=== PATIENT | male | born 1945 | race African-American/Black ===

== ENCOUNTER 2016-12-23 16:51 | Emergency (ER) | payer MEDICARE, MEDICAID ==
[2016-12-23 18:31] LABS: #Basophils 0.1 thou/uL (0.0-0.2); #Eosinphils 0.1 thou/uL (0.0-0.7); #Lymphocytes 1.1 thou/uL (1.20-3.40); #Monocytes 0.6 thou/uL (0.11-0.59); #Neutrophils 3.3 thou/uL (1.40-6.50); %Basophils 1.2 % (0.0-1.0); %Monocytes 11.2 % (0.0-10.0); Hematocrit 42.7 % (42.0-52.0); Mean Platelet Volume 7.3 fL (7.4-10.4); Red Blood Cell (RBC) Count 4.36 mill/uL (4.70-6.10); White Blood Cell (WBC) Count 5.1 thou/uL (4.8-10.8)
[2016-12-23 19:44] LABS: Chloride 108 mmol/L (98-107)
[2016-12-23 19:46] LABS: Globulin 2.9 g/dL (2.4-3.5); Protein, Total 6.4 g/dL (5.8-8.1)
[2016-12-23 19:47] LABS: Anion Gap 12 mmol/L (10-20); Carbon Dioxide 23 mmol/L (23-31)
[2016-12-23 19:48] LABS: Bilirubin, Total 0.6 mg/dL (0.2-1.2)
[2016-12-23 19:49] LABS: Alkaline Phosphatase 96 U/L (40-150); Calc. Creatinine Clearance 0 mL/min (70-130); Estimated GFR-MDRD Greater than 90
[2016-12-23 19:50] LABS: BUN (Urea Nitrogen) 18 mg/dL (8.4-25.7)
[2016-12-23 19:51] LABS: ALT (SGPT) 17 U/L (8-55); AST (SGOT) 17 U/L (5-34)
[2016-12-23 20:13] LABS: Bilirubin Negative (Negative); Blood, Urine Trace (Negative); Glucose, Urine (Dipstick) Negative (Negative); Ketone, Urine Negative (Negative); Nitrite Positive (Negative); Protein, Urine (Dipstick) Negative (Neg-Trace)
[2016-12-23 20:15] LABS: Bacteria/HPF 4+ HPF (None Seen); RBC/HPF 0-3 HPF (0-3); Squamous Epithelial 0-3 HPF (0-3)
[2016-12-23 20:26] LABS: Hyaline Casts/LPF 4-6 HYALINE CAST LPF (0-3 Hyaline)
[2016-12-23] MEDS ORDERED: Sodium Chloride 0.9% 100 ML ONE (20:58)
[2016-12-23] MEDS ORDERED: cefTRIAXone\\ROCEPHIN 2 GM VIAL ONE (20:58)
== END 2016-12-23 22:09 | disposition home or self-care (01) ==
LOC: ERS 16:51
DX: N39.0 Urinary tract infection, site not specified (principal); G20 Parkinson's disease; F02.80 Dementia in other diseases classified elsewhere, unspecified severity, without behavioral disturbance, psychotic disturbance, mood disturbance, and anxiety; F31.9 Bipolar disorder, unspecified; F25.9 Schizoaffective disorder, unspecified
CPT/HCPCS: 36415; 51701; 80053; 81003; 81015; 85025; 87077; 87086; 87186; 96361; 96365; J0696; J7050

== ENCOUNTER 2018-03-24 20:20 | Emergency (ER) | payer MEDICARE, MEDICAID ==
--- NOTE | 2018-03-24 21:20 | RAD ---
PORTABLE CHEST: 03/24/18 PROVIDED CLINICAL HISTORY: Hypoxia. FINDINGS: Comparison 10/30/16. The cardiac and mediastinal silhouette is within normal limits. No definite focal consolidation, pleu ral fluid, or pneumothorax apparent. IMPRESSION: No evidence for an acute cardiopulmonary process. POS: [facility]
[2018-03-24 21:31] LABS: ALT (SGPT) 22 U/L (8-55); AST (SGOT) 17 U/L (5-34); Albumin 3.8 g/dL (3.4-4.8); Alkaline Phosphatase 100 U/L (40-150); Anion Gap 16 mmol/L (10-20); BUN (Urea Nitrogen) 23 mg/dL (8.4-25.7); Bilirubin, Total 0.5 mg/dL (0.2-1.2); Calc. Creatinine Clearance 0 mL/min (70-130); Calcium 9.5 mg/dL (7.8-10.44); Carbon Dioxide 22 mmol/L (23-31); Chloride 106 mmol/L (98-107); Estimated GFR-MDRD 55; Globulin 3.7 g/dL (2.4-3.5); Glucose 172 mg/dL (83-110); Potassium 4.2 mmol/L (3.5-5.1); Protein, Total 7.5 g/dL (5.8-8.1); Sodium 140 mmol/L (136-145)
[2018-03-24 21:34] LABS: Band 8 % (5-11); Hemoglobin 12.8 g/dL (14.0-18.0); Lymphocytes 1 % (21-51); MDiff Complete? YES; Mean Corpuscular HGB CONC 31.9 g/dL (32.0-36.0); Mean Corpuscular Hemoglobin 30.7 pg (27.0-31.0); Mean Corpuscular Volume 96.2 fL (78.0-98.0); Monocytes 2 % (0-10); Neutrophil 89 % (42-75); PLT Morphology Comment Appears Adequate; Platelet Count 270 thou/uL (130-400); RBC Distribution Width 11.6 % (11.5-14.5); Red Blood Cell (RBC) Count 4.18 mill/uL (4.70-6.10); White Blood Cell (WBC) Count 15.3 thou/uL (4.8-10.8)
[2018-03-24 22:56] LABS: Bilirubin Negative (Negative); Blood, Urine Large (Negative); Clarity TURBID (Clear); Glucose, Urine (Dipstick) Negative (Negative); Leukocyte Large (Negative); Nitrite Positive (Negative); Protein, Urine (Dipstick) 30 mg/dL (Neg-Trace); Specific Gravity, Urine 1.022 (1.002-1.036)
[2018-03-24 22:58] LABS: Bacteria/HPF 3+ HPF (None Seen); Yeast-AUWi Flag 89.8 (0-25.0)
[2018-03-24 23:08] LABS: Hyaline Casts/LPF 7-10 HYALINE CAST LPF (0-3 Hyaline)
[2018-03-24 23:10] LABS: Renal Epithelial 0-3 HPF (0-3)
[2018-03-24] MEDS ORDERED: cefTRIAXone\\ROCEPHIN 1 GM VIAL ONE (23:27)
== END 2018-03-25 00:49 | disposition home or self-care (01) ==
LOC: ERS 20:20
DX: N18.9 Chronic kidney disease, unspecified (principal); D63.1 Anemia in chronic kidney disease; N39.0 Urinary tract infection, site not specified; E86.0 Dehydration; F20.9 Schizophrenia, unspecified; F31.9 Bipolar disorder, unspecified; F03.90 Unspecified dementia, unspecified severity, without behavioral disturbance, psychotic disturbance, mood disturbance, and anxiety; G20 Parkinson's disease; Z79.899 Other long term (current) drug therapy
CPT/HCPCS: 36415; 51701; 71045; 80053; 81003; 81015; 85025; 87077; 87086; 87186; 87804; 93005; 96361; 96365; J0696

== ENCOUNTER 2018-07-03 14:01 | Emergency (ER) | payer MEDICARE, MEDICAID ==
[2018-07-03 15:19] LABS: Bilirubin Negative (Negative); Glucose, Urine (Dipstick) Negative (Negative); Nitrite Negative (Negative); Protein, Urine (Dipstick) 300 mg/dL (Neg-Trace); Specific Gravity, Urine 1.023 (1.002-1.036); pH, Urine 7.5 (5.0-9.0)
[2018-07-03 15:21] LABS: Clarity Opaque (Clear)
[2018-07-03 15:22] LABS: Blood, Urine Large (Negative); Leukocyte Moderate (Negative)
[2018-07-03 15:23] LABS: RBC/HPF GREATER THAN 50-TNTC HPF (0-3)
[2018-07-03 15:24] LABS: Bacteria/HPF None Seen HPF (None Seen); Hyaline Casts/LPF NONE SEEN LPF (0-3 Hyaline); Squamous Epithelial None Seen HPF (0-3)
--- NOTE | 2018-07-03 16:15 | CT ---
NONCONTRAST ENHANCED CT IMAGES ABDOMEN AND PELVIS: 07/03/18 HISTORY: Hematuria. Rectal bleeding. Noncontrast enhanced CT images of the abdomen and pelvis demonstrates areas of consolidation seen in the left lower lobe of the lungs. The liver and spleen are unremarkable. No evidence of free intraperitoneal air seen. The gallbladder is unremarkable. No evidence of obvious renal calculi seen. The colon contains a lar ge amount of stool. Large amount of fecal debris seen in the rectum concerning fecal impaction. IMPRESSION: 1. No evidence of renal calculi. 2. Large amount of stool in the colon. POS: [facility]
[2018-07-03 16:17] LABS: #Eosinphils 0.1 thou/uL (0.0-0.7); #Lymphocytes 1.2 thou/uL (1.20-3.40); #Monocytes 0.8 thou/uL (0.11-0.59); #Neutrophils 7.8 thou/uL (1.40-6.50); %Basophils 0.4 % (0.0-1.0); %Eosinophils 0.9 % (0.0-10.0); %Neutrophils 78.8 % (42.0-75.0); Hemoglobin 11.4 g/dL (14.0-18.0); Mean Corpuscular HGB CONC 31.5 g/dL (32.0-36.0); Mean Corpuscular Hemoglobin 29.5 pg (27.0-31.0); Mean Corpuscular Volume 93.7 fL (78.0-98.0); Mean Platelet Volume 6.6 fL (7.4-10.4); Platelet Count 388 thou/uL (130-400); RBC Distribution Width 12.1 % (11.5-14.5); Red Blood Cell (RBC) Count 3.86 mill/uL (4.70-6.10); White Blood Cell (WBC) Count 9.9 thou/uL (4.8-10.8)
[2018-07-03 16:41] LABS: ALT (SGPT) 62 U/L (8-55); AST (SGOT) 38 U/L (5-34); Albumin 3.6 g/dL (3.4-4.8); Alkaline Phosphatase 108 U/L (40-150); Anion Gap 13 mmol/L (10-20); BUN (Urea Nitrogen) 27 mg/dL (8.4-25.7); Bilirubin, Total 0.5 mg/dL (0.2-1.2); Calc. Creatinine Clearance 0 mL/min (70-130); Calcium 9.5 mg/dL (7.8-10.44); Carbon Dioxide 27 mmol/L (23-31); Chloride 110 mmol/L (98-107); Estimated GFR-MDRD 74; Globulin 3.9 g/dL (2.4-3.5); Glucose 109 mg/dL (83-110); Potassium 4.3 mmol/L (3.5-5.1); Protein, Total 7.5 g/dL (5.8-8.1); Sodium 146 mmol/L (136-145)
== END 2018-07-03 18:04 ==
LOC: ERS 14:01
DX: N39.0 Urinary tract infection, site not specified (principal); G20 Parkinson's disease; D64.9 Anemia, unspecified; D50.9 Iron deficiency anemia, unspecified; F02.80 Dementia in other diseases classified elsewhere, unspecified severity, without behavioral disturbance, psychotic disturbance, mood disturbance, and anxiety; F20.9 Schizophrenia, unspecified; F31.9 Bipolar disorder, unspecified; F25.9 Schizoaffective disorder, unspecified; Z79.899 Other long term (current) drug therapy
CPT/HCPCS: 36415; 74176; 80053; 81003; 81015; 85025

== ENCOUNTER 2018-07-04 18:59 | Inpatient (IN) | payer MEDICARE, MEDICAID ==
[~2018-07-04 18:59] MED LIST: ISOVUE-370 76%-LOCM 1 ML ONE
[2018-07-04 19:57] LABS: Blood, Urine Large (Negative); Clarity Opaque (Clear); Leukocyte Unable to Interpret (Negative)
[2018-07-04 19:58] LABS: #Lymphocytes 0.6 thou/uL (1.20-3.40); #Monocytes 0.5 thou/uL (0.11-0.59); #Neutrophils 4.6 thou/uL (1.40-6.50); %Basophils 0.3 % (0.0-1.0); %Eosinophils 0.8 % (0.0-10.0); %Lymphocytes 9.6 % (21.0-51.0); %Monocytes 8.1 % (0.0-10.0); %Neutrophils 81.3 % (42.0-75.0); Hemoglobin 5.5 g/dL (14.0-18.0); Mean Corpuscular HGB CONC 31.6 g/dL (32.0-36.0); Mean Corpuscular Hemoglobin 30.8 pg (27.0-31.0); Mean Corpuscular Volume 97.4 fL (78.0-98.0); Mean Platelet Volume 6.5 fL (7.4-10.4); Platelet Count 179 thou/uL (130-400); Red Blood Cell (RBC) Count 1.77 mill/uL (4.70-6.10); White Blood Cell (WBC) Count 5.7 thou/uL (4.8-10.8)
[2018-07-04 19:59] LABS: Platelet Count 179 thou/uL (130-400)
[2018-07-04 20:05] LABS: Glucose, Urine (Dipstick) Unable to Interpret mg/dL (Negative); Nitrite Unable to Interpret (Negative); Protein, Urine (Dipstick) > or equal to 300 mg/dL (Neg-Trace); Specific Gravity, Urine 1.035 (1.002-1.036)
[2018-07-04 20:06] LABS: Bilirubin Unable to Interpret (Negative); Urobilinogen UNABLE TO INTERPRET mg/dL (0.2-1.0)
[2018-07-04 20:06] LABS: Fibrinogen 234 mg/dL (253-463)
[2018-07-04 20:07] LABS: RBC/HPF GREATER THAN 50-TNTC HPF (0-3)
[2018-07-04 20:07] LABS: INR-International Normal Ratio 2.1; Prothrombin Time 23.6 SEC (12.0-14.7)
[2018-07-04 20:08] LABS: D-Dimer Test 2.03 *mcg/mL (0.27-0.43)
[2018-07-04 20:08] LABS: Bacteria/HPF None Seen HPF (None Seen); Hyaline Casts/LPF NONE SEEN LPF (0-3 Hyaline)
[2018-07-04 20:10] LABS: PTT 137.2 SEC (22.9-36.1)
[2018-07-04 20:18] LABS: FSP-Qualitative Normal (Normal)
[2018-07-04 20:27] LABS: ALT (SGPT) 22 U/L (8-55); AST (SGOT) 12 U/L (5-34); Albumin 1.6 g/dL (3.4-4.8); Alkaline Phosphatase 47 U/L (40-150); Anion Gap 6 mmol/L (10-20); BUN (Urea Nitrogen) 17 mg/dL (8.4-25.7); Bilirubin, Total 0.2 mg/dL (0.2-1.2); Calc. Creatinine Clearance 0 mL/min (70-130); Calcium 4.3 mg/dL (7.8-10.44); Carbon Dioxide 13 mmol/L (23-31); Chloride 131 mmol/L (98-107); Estimated GFR-MDRD Greater than 90; Globulin 1.7 g/dL (2.4-3.5); Glucose 66 mg/dL (83-110); Potassium 1.7 mmol/L (3.5-5.1); Protein, Total 3.3 g/dL (5.8-8.1); Sodium 148 mmol/L (136-145)
--- NOTE | 2018-07-04 20:49 | CT ---
CT of abdomen and pelvis: 07/04/2018 COMPARISON: 07/03/2018 HISTORY: Hematuria TECHNIQUE: Axial CT imaging obtained at 5 mm intervals from lung bases through pubic symphysis with I V contrast. Coronal reformatted imaging obtained. FINDINGS: There is a focal area of pulmonary parenchymal opacity within the inferior posterior left l ower lobe suggesting infectious pneumonitis or aspiration. There is no free intraperitoneal air. A Castillo catheter is present. The balloon is inflated within the region of the bulbous urethra. The liver, gallbladder, and spleen are grossly unremarkable. The pancreas and bilateral adrenal gland s appear grossly unremarkable. There is a low-density lesion within the mid pole of the left kidney medially measuring 1.4 cm, with Hounsfield units of approximately 1, evidence of a simple cyst. Additional simple cyst noted within mid pole of right kidney anteriorly. There is mild dilation of the right renal pelvis and right renal collecting system. Material within t he dilated renal pelvis and right renal collecting system is slightly hyperdense, which may signify hemorrhage. The rectum is markedly expanded and filled with stool suggesting fecal impaction. Limited assessment of the bowel without oral contrast media demonstrates no evidence for obstruction. There is multifocal atherosclerotic calcification of the abdominal aorta and its branches distally. 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 Right common iliac artery measures up to 1.8 cm in transverse dimension. No evidence for abdominal or pelvic lymphadenopathy. Review of the osseous structures demonstrates diffuse osteopenia with no focal lytic or blastic bone lesion. No acute osseous abnormality is noted. IMPRESSION: Castillo catheter with balloon inflated within the bulbous urethra. Hyperdense material with in a prominent right renal collecting system, suspicious for hemorrhage. A degree of obstructive uropathy is a possibility. Urology consultation and consideration for follow-up CT urogram suggested. Findings suspicious for fecal impaction Focal opacity in the left lung base suggesting infectious pneumonitis or aspiration. Atherosclerotic disease. 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 Acute findings relayed to Dr. Damico at 8:45 PM 07/04/2018.
[2018-07-04] MEDS ORDERED: Magnesium 2 GM/50 ML BAG (IN WATER) ONE (20:58)
[2018-07-04] MEDS ORDERED: Piperacillin/Tazobactam 4.5 GM VIAL ONE (20:58)
[2018-07-04] MEDS ORDERED: Sodium Chloride 0.9% 100 ML ONE (20:59)
[2018-07-04 21:15] LABS: INR-International Normal Ratio 1.3; Prothrombin Time 16.3 SEC (12.0-14.7)
[2018-07-04] MEDS ORDERED: Vancomycin HCl 1.25 GM in Sodium Chloride 0.9% 250 ML 250 ML IVPB SCH (21:15)
[2018-07-04] MEDS ORDERED: Calcium Gluc 4.6 MEQ/10 ML (100 MG/ML) SLOW IVP SCH (21:15)
--- NOTE | 2018-07-04 21:50 | RAD ---
Frontal radiograph chest: 07/04/2018 COMPARISON: 03/24/2018 HISTORY: Sepsis alert, hematuria FINDINGS: Mild hazy density in the medial left lung base suggests possible aspiration or infectious p neumonitis. Right lung appears clear. No pneumothorax is seen. IMPRESSION: Mild increased density in the medial left lung base as above.
[2018-07-04] MEDS ORDERED: Lidocaine 4% Topical Sol 50 ML BOT ONE (22:23)
[2018-07-04] MEDS ORDERED: Loperamide HCl 2 MG CAP ONE (22:23)
[2018-07-04] MEDS ORDERED: Lidocaine 2% 11 ML SYR TOP SCH ×2 (22:45→23:45)
[2018-07-04 23:51] LABS: #Eosinphils 0.1 thou/uL (0.0-0.7); #Neutrophils 8.8 thou/uL (1.40-6.50); %Basophils 0.4 % (0.0-1.0); %Eosinophils 0.8 % (0.0-10.0); %Lymphocytes 9.5 % (21.0-51.0); %Monocytes 9.2 % (0.0-10.0); %Neutrophils 80.1 % (42.0-75.0); Hemoglobin 10.1 g/dL (14.0-18.0); Mean Corpuscular HGB CONC 30.2 g/dL (32.0-36.0); Mean Corpuscular Hemoglobin 29.6 pg (27.0-31.0); Mean Corpuscular Volume 97.9 fL (78.0-98.0); Platelet Count 300 thou/uL (130-400); RBC Distribution Width 12.2 % (11.5-14.5); Red Blood Cell (RBC) Count 3.42 mill/uL (4.70-6.10); White Blood Cell (WBC) Count 10.9 thou/uL (4.8-10.8)
[2018-07-05 00:03] LABS: ALT (SGPT) 42 U/L (8-55); AST (SGOT) 24 U/L (5-34); Alkaline Phosphatase 89 U/L (40-150); Anion Gap 14 mmol/L (10-20); BUN (Urea Nitrogen) 30 mg/dL (8.4-25.7); Bilirubin, Total 0.7 mg/dL (0.2-1.2); Calc. Creatinine Clearance 0 mL/min (70-130); Calcium 9.2 mg/dL (7.8-10.44); Carbon Dioxide 21 mmol/L (23-31); Chloride 112 mmol/L (98-107); Estimated GFR-MDRD 63; Globulin 3.4 g/dL (2.4-3.5); Glucose 103 mg/dL (83-110); Potassium 4.2 mmol/L (3.5-5.1); Protein, Total 6.4 g/dL (5.8-8.1); Sodium 143 mmol/L (136-145)
[2018-07-05 02:23] VITALS: BMI 19.1
[2018-07-05] MEDS ORDERED: Prevnar 13-Val Conj/PF 0.5 ML SYRINGE IM ONE (02:45)
--- NOTE | 2018-07-05 05:11 | CON ---
DATE OF CONSULTATION: 07/05/2018 REASON FOR CONSULTATION: Consultation was requested for both hematuria, urinary tract infection, and unable to get a catheter in. 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 He returns with now an indwelling catheter that just shows daina blood and as best I can tell, the indwelling was placed at the skilled nursing or his facility and clearly was placed improperly as demonstrated by the CT scan. I asked the ER to remove the misplaced catheter and attempt a coude and they were unable to do this. So, I was called back. He had been voiding spontaneously on his own periodically since those attempts. So, I have no idea why the catheter was placed or attempted to be placed in the first place. It does not appear that he has had prior urologic intervention nor urologist. PAST MEDICAL HISTORY: Significant for Parkinson dementia, anemia, hemorrhoids, blindness, and schizoaffective disorder. PAST SURGICAL HISTORY: Unknown. MEDICATIONS: Include, 1. Vitamin B and C. 2. Colace. 3. Tylenol. 4. Milk of magnesia. ALLERGIES: NONE. SOCIAL HISTORY: I am not aware of any smoking, alcohol, or drug use. REVIEW OF SYSTEMS: Previously, he has been admitted for aspiration issues and pneumonia in 2016 with dysphagia being diagnosed. Other than that, I have no known review of systems, but clearly he has not been having normal bowels as he has a significant amount of stool in his rectum. FAMILY HISTORY: Unknown. PHYSICAL EXAMINATION: GENERAL: He is lying comfortably in the bed. HEENT: He does not open his eyes to voice or stimulation; however, with the more examination that was performed, he did ultimately open at least his right eye, but he was nonverbal and did not appear to necessarily understand or at least be able to communicate that he was understanding me. He was very thin and cachectic with contractions. He had no obvious JVD or scleral icterus. HEART: Regular rate and rhythm. No murmurs, gallops, or rubs. LUNGS: Clear to auscultation bilaterally. ABDOMEN: Softly distended and after Castillo placement, there is softness on the left, but still some fullness on the right. : His testes were atrophic and descended bilaterally after being pulled down. His phallus was appeared to be circumcised, but the excess did go over the casanova, but not covering the entire glans. EXTREMITIES: He had no lower extremity edema. RECTAL: SAMMY was deferred. LABORATORY DATA: All of his laboratory values were abnormal originally and then redrawn showing a white count of 10.9, hemoglobin of 10.1, hematocrit of 33.5, and platelets of 300. His BUN and creatinine are 30 and 1.36, which is up from the 1.18 previously and has been as high as 1.52 in March of this year. Urine from the showed 11 to 20 wbc's, too numerous to count rbc's, no bacteria, no squamous cells. The original urinalysis from the was just frankly blood and not urine. I did send the urine from after my procedure that will be dated the that is more artist representative. There was a urine culture that was positive from March of this year for E coli, Proteus in 2016, and presumably an infection in 2015, but no culture. CT scan from 07/04/2018 with contrast reveals mild right hydro with question of concerns for calyx in the ureters, but probably more likely just in adjacent vessels and the distention is possibly related to the full bladder. There was no left hydro. He had bilateral simple cysts, and the bladder was full with the Castillo in the urethra or anywhere near the bladder itself, and the rectum was full of stool with significant dilation of air in the rest of the bowel. DESCRIPTION OF PROCEDURE: The patient was prepped in sterile fashion and then, an 18-Lithuanian flexible cystoscope was used to traverse the urethra. Significant hematuria and inflammation were noted. At first, there appeared to be a possible stricture; however, after further manipulation, I was able to aim the scope more anteriorly and easily passed into the bladder itself, where there was not a significant amount of hematuria noted in the bladder and I left a stiff wire in place after removing the scope itself. Then, an 18-L[place]uanian [place] was used to go over the wire without difficulty. Hematuric urine was returned and sent for specimen. There was not a significant amount, so then I irrigated for a small amount of clot and the patient just had significant spasm, so you could not fill him up significantly, but the catheter did appear to be in proper position and so it was then secured and left to gravity. ASSESSMENT: We have a 73-year-old male with concern for urinary tract infection , but this has not been documented as such but he has had hematuria. Whether it is related to intermittent catheterization versus traumatic Castillo in the urethra, I am not sure. I did not see any obvious source in the bladder itself, but of course , this was a preliminary examination given the circumstances. So at this point, I would leave the catheter in at least 5 to 7 days and allow the urethral trauma to heal. I would presumably treat him for infection. However, I am not sure that we will ultimately have a positive culture, so I would keep him on Rocephin until we know better. While he is in-house, I would work towards ensuring his bowels are moving regularly without any concern for fecal impaction. I will go ahead and start tamsulosin at this time for presumed BPH as a reason for his urinary tract infection and finasteride could be helpful with respect to hematuria as well. I'll order a KUB to assess for clearance of the IV contrast to f/u on right hydronephrosis. Job ID: [id number] [facility]
[2018-07-05] MEDS ORDERED: Bacitracin Zinc Ointment 30 gm TUBE ONE (06:46)
[2018-07-05] MEDS ORDERED: Dextrose 5 %-0.45 % NaCl 1,000 ML IV SCH (07:00)
[2018-07-05] MEDS: Tamsulosin HCl 0.4 MG CAP PO SCH ×2 (07:30→11:01)
[2018-07-05] MEDS: Finasteride 5 MG TAB PO SCH ×2 (07:30→11:00)
[2018-07-05] MEDS ORDERED: Ondansetron ODT 8 MG TAB PO PRN (10:32)
[2018-07-05] MEDS ORDERED: Acetaminophen 325 MG TAB PO PRN (10:33)
[2018-07-05] MEDS: Dextrose 5 %-0.45 % NaCl 1,000 ML IV SCH ×2 (10:42→22:56)
[2018-07-05] MEDS ORDERED: cefTRIAXone\\ROCEPHIN 2 GM in Sodium Chloride 0.9% 100 ML IVPB SCH (11:00)
--- NOTE | 2018-07-05 12:21 | RAD ---
SUPINE ABDOMEN: Date: 07/05/18 INDICATION: Evaluate for clearance of contrast. FINDINGS/IMPRESSION: Patient had contrasted CT exam on 07/04/18. There continues to be contrast opacification in the upper collecting structures. There is gaseous distention of small and large bowel with scattered stool thr oughout the colon/ A rounded opacity overlying the left iliac wing is of uncertain etiology and signi ficance. This was not identified on recent CT scan. POS: [facility]
[2018-07-05] MEDS ORDERED: Fleet Enema 133 ML BOT FS SCH (14:15)
[2018-07-05] MEDS ORDERED: Magnesium Citrate 300 ML BOT PO SCH (14:15)
[2018-07-05] MEDS: Piperacillin/Tazobactam 3.375 GM in Sodium Chloride 0.9% 100 ML IVPB SCH ×2 (15:22→20:06)
--- NOTE | 2018-07-05 18:20 | PRG ---
DATE OF SERVICE: 07/05/2018 SUBJECTIVE: The patient cannot communicate, but is sitting up and being fed without difficulty and seemingly done okay through the day. PHYSICAL EXAMINATION: GENERAL: He is alert and eating, but not communicative. VITAL SIGNS: His vitals have been stable with T-max 99.0, previously now 98.7, heart rate 82, blood pressure 149/74, and saturating 90% on room air. A Castillo catheter is in place and is draining 225 of urine. LABORATORY DATA: No new labs were obtained and unfortunately despite collecting myself in the specimen cup and asking for microscopic analysis and culture, I do not see that there was one sent from the urine that I obtained once I placed the Castillo last evening. It would be unlikely to grow anything. He has been on antibiotics, but it would have been helpful to know whether there was bacteria in the urine, remaining to help guide on antibiotic coverage. A PSA was obtained and 1.94 from 07/05/2018. A KUB was also obtained around noon today and showed a persistent right nephrogram, but did not show any columning in the ureter. The Castillo appeared to be in good position via the KUB and there was no remaining contrast on the left. I reviewed with the patient's power of police clerk, which is the medicare interviewer, Anna and her field service supervisor on my concern is that the kidney may not be draining and ultimately I would take him for cystoscopy, retrograde pyelogram and possible stent. We reviewed the risks and benefits to this and how it is relatively minor overall, however, still a procedure. I consented him including not rescinding his DNR order during the procedure itself and all questions were answered. If for some reason , his labs are all improved, I would repeat the KUB to evaluate for drainage on this side before again taking him to the OR. Otherwise I'll, plan on taking him for the procedure and keep him n.p.o. after midnight tonight. I will also send cytology. Job ID: [id number] [facility]
[2018-07-05] MEDS ORDERED: Polyethylene Glycol 3350 17 GM Packet PO SCH (19:15)
[2018-07-05] MEDS: Docusate 100 MG CAP PO SCH (20:06)
[2018-07-05] MEDS: Milk Of Magnesia 30 ML UDCUP PO SCH (20:06)
[2018-07-06] MEDS: Piperacillin/Tazobactam 3.375 GM in Sodium Chloride 0.9% 100 ML IVPB SCH ×4 (03:33→20:46)
[2018-07-06] MEDS: Dextrose 5 %-0.45 % NaCl 1,000 ML IV SCH ×2 (03:33→20:50)
[2018-07-06 06:19] LABS: #Eosinphils 0.1 thou/uL (0.0-0.7); #Lymphocytes 0.7 thou/uL (1.20-3.40); #Monocytes 0.9 thou/uL (0.11-0.59); #Neutrophils 7.4 thou/uL (1.40-6.50); %Basophils 0.3 % (0.0-1.0); %Eosinophils 1.4 % (0.0-10.0); %Lymphocytes 7.2 % (21.0-51.0); %Monocytes 9.5 % (0.0-10.0); %Neutrophils 81.6 % (42.0-75.0); Hemoglobin 8.5 g/dL (14.0-18.0); Mean Corpuscular HGB CONC 31.3 g/dL (32.0-36.0); Mean Corpuscular Hemoglobin 29.7 pg (27.0-31.0); Mean Platelet Volume 7.2 fL (7.4-10.4); Platelet Count 284 thou/uL (130-400); Red Blood Cell (RBC) Count 2.86 mill/uL (4.70-6.10); White Blood Cell (WBC) Count 9.1 thou/uL (4.8-10.8)
[2018-07-06 06:47] LABS: Anion Gap 10 mmol/L (10-20); BUN (Urea Nitrogen) 26 mg/dL (8.4-25.7); Calc. Creatinine Clearance 34 mL/min (70-130); Calcium 8.7 mg/dL (7.8-10.44); Carbon Dioxide 28 mmol/L (23-31); Chloride 109 mmol/L (98-107); Estimated GFR-MDRD 50; Glucose 127 mg/dL (83-110); Potassium 3.7 mmol/L (3.5-5.1); Sodium 143 mmol/L (136-145)
[2018-07-06] MEDS: Ascorbic Acid 500 mg Chewable Tablet PO SCH (08:28)
[2018-07-06] MEDS: Polyethylene Glycol 3350 17 GM Packet PO SCH (08:28)
[2018-07-06] MEDS: Finasteride 5 MG TAB PO SCH (08:28)
[2018-07-06] MEDS: Docusate 100 MG CAP PO SCH ×2 (08:28→20:43)
[2018-07-06] MEDS: Milk Of Magnesia 30 ML UDCUP PO SCH ×2 (08:28→20:43)
[2018-07-06] MEDS: Tamsulosin HCl 0.4 MG CAP PO SCH (08:29)
[2018-07-06] MEDS: Thiamine 100 MG TAB PO SCH (08:29)
--- NOTE | 2018-07-06 09:00 | HP ---
CHIEF COMPLAINT: Hematuria. HISTORY OF PRESENT ILLNESS: Mr. Locke is a 73-year-old male with past medical history of Parkinson disease, protein-calorie malnutrition, dysphagia, was noted to have hematuria for the last 2 to 3 days. The patient was evaluated in the ER for hematuria, thought he has UTI and was released, but the patient continued to have hematuria at the alf and blood clots and hematuria was getting worse. They tried to put a Castillo catheter, nothing was draining, basically they were unsuccessful. The patient was sent to the emergency room for further evaluation. In the ER, the patient was evaluated, catheter was removed and ER physician could not reinsert catheter. So he consulted Urologist, Dr. Wren, who came and inserted Castillo. After insertion of Castillo, his hematuria is much less now. He did have abdominal CTs done in the ER, which was reported as possible pneumonitis as well as suspicious for hemorrhage and renal collecting system on the right, also suspicious for fecal impaction. The patient was given Rocephin in the ER, started on IV fluids, the patient being admitted for further management and monitoring. PAST MEDICAL HISTORY: 1. Parkinson's disease with dementia, the patient is nonambulatory and nonverbal. 2. Chronic anemia. 3. Blindness, legally blind. 4. History of schizoaffective disorder. 5. Dysphagia, severe. 6. History of aspiration pneumonia. 7. History of transaminitis. PAST SURGICAL HISTORY: Nothing significant. CURRENT MEDICATIONS: The patient is on: 1. Vitamin C daily. 2. Colace 100 mg b.i.d. 3. Milk of magnesia 30 mL b.i.d. ALLERGIES: NO KNOWN DRUG ALLERGIES. FAMILY HISTORY: Nothing contributory. SOCIAL HISTORY: The patient is awake, but not verbal. Unable to obtain any history. REVIEW OF SYSTEMS: Unable to obtain. PHYSICAL EXAMINATION: GENERAL: The patient is a resident of [facility], nonambulatory. VITAL SIGNS: Temperature 98, pulse 80, resp 20, BP 130/80 HEENT: Head is normocephalic and atraumatic. Pupils are equal and reactive. Nasopharynx is pale and dry. Hard and soft palate, no lesions. LUNGS: Breath sounds diminished bilaterally. Percussion dull bilaterally. No rales. HEART: S1 and S2 regular. ABDOMEN: Soft. No distention. No tenderness. Normal bowel sounds present. RECTAL: Deferred. CENTRAL NERVOUS SYSTEM: No focal deficit. LABORATORY DATA: CBC shows WBC 10.9, hemoglobin 10, hematocrit 33, platelets 300, prothrombin time 16, INR 1.3. Metabolic panel: sodium 143, potassium 4.2, chloride 112, carbon dioxide 21. Chest x-ray, there is increased density in the left base. CT scan of the abdomen revealed possible aspiration pneumonitis, left base and abnormality in renal collecting system on the right, also fecal impaction. ASSESSMENT: 1. Hematuria, etiology not clear. 2. Aspiration pneumonia, left base. 3. Constipation. 4. Severe dementia. 5. Parkinson disease. 6. The patient is bedridden, nonambulatory. 7. The patient is nonverbal. 8. Rule out renal parenchymal hemorrhage. 9. Anemia, chronic. PLAN: 1. The patient will be on antibiotic Zosyn 3.375 g q.6 hours, IVP D5-1/. 2. Urology consult. 3. Continue alf medications. 4. Vital signs q.4 hours. 5. Activity as tolerated. 6. The patient is DNR. Job ID: [id number] [facility]
[2018-07-06] MEDS ORDERED: PROPOFOL 200 MG/20 ML VIAL ONE (15:54)
[2018-07-06] MEDS ORDERED: Lidocaine 1% PF 5 ML VIAL ONE (15:54)
[2018-07-06] MEDS ORDERED: Ondansetron PF 4 MG/2 ML Vial ONE (15:54)
[2018-07-06] MEDS ORDERED: ePHEDrine 50 MG/ML VIAL ONE (15:54)
[2018-07-06] MEDS ORDERED: PHENYLEPHRINE-NS 100 MCG/ML 10 ML SYRINGE ONE (15:54)
[2018-07-06] MEDS ORDERED: Fentanyl 100 MCG/2 ML VIAL ONE (17:06)
[2018-07-06] MEDS ORDERED: Iothalamate Meglumine 60% 50 ML VIAL FS ONE (17:06)
[2018-07-06] MEDS ORDERED: Phenylephrine HCL 10 MG/ML VIAL ONE (18:01)
--- NOTE | 2018-07-06 18:39 | RAD ---
Retrograde pyelogram: 07/06/2018 HISTORY: Cystoscopy FINDINGS: 4 images from a right-sided retrograde pyelogram provided. There is a conspicuous multifoca l filling defect within the renal pelvis and upper pole calyces on the right, which may signify blood clot and/or tumor within the right renal collecting system. IMPRESSION: Multiple filling defects within the right renal collecting system as detailed above.
[2018-07-06] MEDS ORDERED: Promethazine HCl 25 MG/ML VIAL IM PRN ×2 (18:47→18:48)
[2018-07-06] MEDS ORDERED: Promethazine HCl 25 MG/ML VIAL SLOW IVP PRN ×2 (18:47→18:48)
[2018-07-06 19:53] LABS: Clarity Turbid (Clear)
[2018-07-06 19:54] LABS: Bilirubin Unable to Interpret (Negative); Blood, Urine Large (Negative); Glucose, Urine (Dipstick) Unable to Interpret mg/dL (Negative); Leukocyte Unable to Interpret (Negative); Nitrite Unable to Interpret (Negative); Protein, Urine (Dipstick) > or equal to 300 mg/dL (Neg-Trace); Specific Gravity, Urine 1.014 (1.002-1.036); Urobilinogen UNABLE TO INTERPRET mg/dL (0.2-1.0); pH, Urine 6.8 (5.0-9.0)
[2018-07-06 20:01] LABS: RBC/HPF GREATER THAN 50-TNTC HPF (0-3)
[2018-07-06 20:04] LABS: Bacteria/HPF None Seen HPF (None Seen); Hyaline Casts/LPF NONE SEEN LPF (0-3 Hyaline); Squamous Epithelial None Seen HPF (0-3)
--- NOTE | 2018-07-07 01:34 | OP ---
DATE OF PROCEDURE: 07/06/2018 PREOPERATIVE DIAGNOSES: Right hydronephrosis and hematuria. POSTOPERATIVE DIAGNOSES: Right hydronephrosis and hematuria with presumed right upper pelvis filling defect and significant bloody urine and presumed clot in the ureter with hydronephrosis from that. PROCEDURE: cystoscopy, retrograde pyelogram, stent palcement 6x24 SPECIMENS: Urine from the right ureter for micro, culture, and cytology and urine from the right renal pelvis just for cytology. ESTIMATED BLOOD LOSS: Minimal. COMPLICATIONS: None. DRAIN REMAININ x 24 double-J and 18-Eth[place]ian [place]. INDICATIONS FOR PROCEDURE: The patient was admitted with concerns for UTI and hematuria and he already presented with a catheter blown up in his urethra, so the ER could not place one and I had to scope the catheter in noting significant urethral trauma, but no stricture. He had right hydronephrosis at that time with concern for some blood in the system, but that was not definitively obvious and I was hoping that the right hydronephrosis would improve with the Castillo catheter in the proper position. However, his creatinine only elevated and his hydronephrosis was persistent, so I took him to the operating room for retrograde pyelogram and possible stent. DESCRIPTION OF PROCEDURE: The patient was brought into the room by Anesthesia, laid on the table in supine position. After receiving general anesthetic, his legs were placed in lithotomy position, which was incredibly hard because they were contracted and there was minimal space to work. Then he was prepped and draped in sterile fashion. Using a 21-Ethiopian cystoscope and 30-degree lens, the urethra was traversed and the trauma noted in the bulbar urethra was still significant. The prostatic urethra looked like it had possibly been treated with prior TURP and was relatively open. It did ooze throughout the case though. The bladder itself had clot in it that was irrigated out before I could evaluate it and the bladder otherwise was unremarkable other than trabeculations and cellules. The left ureteral orifice was easily identified, the right was not, but in the anticipated position, I was able to place a Sensor wire into the spot that was most likely the UO. Fortunately, that was it and it opened easily. I placed the wire and the Pollack catheter into this area. Then the wire was removed leaving the Pollack catheter in the distal ureter and a retrograde pyelogram was performed. I initially did not want to go more proximal, and so most of the effuse came back out and was significantly dark, consistent with old blood. The open-ended was far enough in that it should have gone retrograde , but the presumed clot in the ureter made it choose the path of least resistance--back out. So, the catheter was advanced further and another retrograde pyelogram was performed revealing further hydroureter and hydronephrosis that appeared to have a probable clot in the distal ureter but not proximal. The return was significantly dark, old blood. I contemplated trying to visualize this with the ureteroscope, but based on the color and thickness of the blood, I figured I would have little to no luck, so instead sent urine for micro and culture and cytology, then advanced the Pollack catheter into the renal pelvis where further retrograde pyelogram confirmed a filling defect of approximately 3 x 4-5cm in the upper portion of the pelvis, consistent with either mass versus clot causing mass effect. I sent more cytology from this area by adding saline and extracted more and further irrigated out the system. At this point, I felt it would be appropriate to place a stent given the patient's rising creatinine that was likely from obstruction in the ureter, presumably from clot as opposed to a mass in the ureter. If and when a definitive procedure would be done on the kidney, the ureter may be helpful to have a stent in already. I placed a 6 x 24 double-J and a good coil was noted in the renal pelvis via fluoroscopy and a good coil visualized in the bladder via cystoscopy. At this point, I left a wire in the bladder, removed the scope and put an 18-Ethiopian [place] over the wire so as not to hang up in the urethral trauma from the prior misplaced Castillo. This was secured and the patient was then awakened and transferred to PACU in stable condition. Job ID: [id number] [facility]
[2018-07-07] MEDS: Piperacillin/Tazobactam 3.375 GM in Sodium Chloride 0.9% 100 ML IVPB SCH ×4 (02:38→20:25)
[2018-07-07 04:42] LABS: #Lymphocytes 0.5 thou/uL (1.20-3.40); #Monocytes 0.5 thou/uL (0.11-0.59); #Neutrophils 6.8 thou/uL (1.40-6.50); %Eosinophils 0.1 % (0.0-10.0); %Monocytes 5.8 % (0.0-10.0); %Neutrophils 88.2 % (42.0-75.0); Hemoglobin 7.8 g/dL (14.0-18.0); Mean Corpuscular HGB CONC 31.7 g/dL (32.0-36.0); Mean Corpuscular Hemoglobin 30.3 pg (27.0-31.0); Mean Corpuscular Volume 95.5 fL (78.0-98.0); Mean Platelet Volume 7.1 fL (7.4-10.4); Platelet Count 274 thou/uL (130-400); RBC Distribution Width 11.9 % (11.5-14.5); Red Blood Cell (RBC) Count 2.56 mill/uL (4.70-6.10); White Blood Cell (WBC) Count 7.7 thou/uL (4.8-10.8)
[2018-07-07 05:01] LABS: Anion Gap 13 mmol/L (10-20); BUN (Urea Nitrogen) 23 mg/dL (8.4-25.7); Calc. Creatinine Clearance 35 mL/min (70-130); Calcium 8.5 mg/dL (7.8-10.44); Carbon Dioxide 23 mmol/L (23-31); Chloride 111 mmol/L (98-107); Estimated GFR-MDRD 51; Glucose 157 mg/dL (83-110); Potassium 4.5 mmol/L (3.5-5.1); Sodium 142 mmol/L (136-145)
[2018-07-07] MEDS: Finasteride 5 MG TAB PO SCH (09:58)
[2018-07-07] MEDS: Tamsulosin HCl 0.4 MG CAP PO SCH (09:58)
[2018-07-07] MEDS: Ascorbic Acid 500 mg Chewable Tablet PO SCH (09:59)
[2018-07-07] MEDS: Docusate 100 MG CAP PO SCH ×2 (09:59→20:26)
[2018-07-07] MEDS: Thiamine 100 MG TAB PO SCH (09:59)
[2018-07-07] MEDS: Polyethylene Glycol 3350 17 GM Packet PO SCH (10:00)
[2018-07-07] MEDS: Milk Of Magnesia 30 ML UDCUP PO SCH ×2 (10:00→20:26)
--- NOTE | 2018-07-07 12:52 | PRG ---
DATE OF SERVICE: 07/07/2018 SUBJECTIVE: The patient did well overnight. He is nonverbal. He has no complaints. There were no reported incidents. OBJECTIVE: VITAL SIGNS: He has been afebrile with vital signs stable. Blood pressure down to 98/50, but otherwise 115/61. He had 1125 urine output. GENERAL: He is lying comfortably in the bed. The urine catheter is draining dark red urine without clots. LABORATORY DATA: His creatinine is 1.63, this has not improved. His hemoglobin and hematocrit have dropped somewhat to 7.8 and 24.5. His urine showed no concern for infection from the right renal unit and the cytology is pending. ASSESSMENT: We have a 73-year-old male with concern for renal mass versus clot or combination of both in the upper collecting system causing significant hematuria and obstruction, now status post stent from 07/06/2018. However, this did not immediately help his renal function. I am awaiting his cytology to determine if there is obvious concern for malignant source at this time and I will try to review this with his color room attendant, but for now, the catheter needs to remain in and monitor. He may or may not benefit from transfusion, especially if his hemoglobin and hematocrit continues to drop. Job ID: [id number]
--- NOTE | 2018-07-07 13:19 | PDOC.PN ---
- Subjective Encounter Start Date: 07/07/18 Encounter Start Time: 12:20 -: non-verbal CC; HEMATURIA SUBJECTIVE; PATIENT SEEN AND EVAL. NO FAMILY PRESENT. PER NURSE, PERSISTENT HEMATURIA. NO OTHER EVENTS ROS; UNABLE TO OBTAIN DUE TO DEMENTIA - Objective Resuscitation Status - Order Detail: 07/05/18 14:33 Resuscitation Status Routine Resuscitation Status: DNAR: NO Resuscitation Discussed with: ELEN PEARCE-CHIEF LIBRARIAN CIRCULATION DEPARTMENT FROM [facility] Reviewed: Yes Vital Signs & Weight: Vital Signs (12 hours) Temp Pulse Resp BP Pulse Ox 07/07/18 11:07 97.4 F L 105 H 24 H 115/58 L 93 L 07/07/18 08:00 96 07/07/18 07:20 98.4 F 79 14 115/61 96 07/07/18 04:23 98.7 F 56 L 18 98/50 L 93 L Weight Weight 129 lb 14.342 oz I&O: 07/06/18 07/07/18 07/08/18 06:59 06:59 06:59 Intake Total 2300 540 Output Total 1230 1125 Balance 1070 -585 Result Diagrams: 07/07/18 04:08 07/07/18 04:08 Radiology Reviewed by me: Yes EKG Reviewed by me: Yes Phys Exam - Physical Examination HEENT: PERRLA DRY MUCUS MEMB. TEMPORAL WAISTING Neck: no nodes, no JVD Respiratory: no wheezing, no rales, no rhonchi Cardiovascular: RRR, no significant murmur Gastrointestinal: soft, non-tender, no distention Musculoskeletal: no edema, pulses present DESCREASED MUSCLE MASS BED BOUND. PARKINSONS Skin: cap refill <2 seconds Deviation from normal: PALLOR. DRY Dx/Plan (1) Arsalan hematuria Status: Acute Plan: S/P CYSTOSCOPYWITH RIGHT STENTING. CYTOLOGY SENT. UROLOGY FOLLOWS (2) Pneumonia, aspiration Code(s): J69.0 - PNEUMONITIS DUE TO INHALATION OF FOOD AND VOMIT Status: Acute Plan: CONTINUE ZOSYN. ASPIRATION PRECAUTIONS (3) Severe malnutrition Code(s): E43 - UNSPECIFIED SEVERE PROTEIN-CALORIE MALNUTRITION Status: Chronic (4) Dementia Code(s): F03.90 - UNSPECIFIED DEMENTIA WITHOUT BEHAVIORAL DISTURBANCE Status: Chronic Qualifiers: Dementia type: Parkinson's disease (5) Anemia Code(s): D64.9 - ANEMIA, UNSPECIFIED Status: Chronic Plan: ACUTE BLOOD LOSS ANEMIA ON TOP OF CHRONIC ILLNESS ANEMIA (6) Dysphagia Code(s): R13.10 - DYSPHAGIA, UNSPECIFIED Status: Chronic Plan: PRECAUTIONS (7) Parkinson disease Code(s): G20 - PARKINSON'S DISEASE Status: Chronic (8) Schizoaffective disorder Code(s): F25.9 - SCHIZOAFFECTIVE DISORDER, UNSPECIFIED Status: Chronic (9) LISA (acute kidney injury) Code(s): N17.9 - ACUTE KIDNEY FAILURE, UNSPECIFIED Status: Acute Plan: NOT CLEAR. SUSPECTED PRERENAL. MONITOR. (10) Pressure ulcer, sacrum Status: Chronic - Plan cont current plan of care MONITOR CULTURES AND CYTOLOGY. MONITOR KIDNEY FUNCTION AND RESOLUTION OF HEMATURIA. CONSIDERING HOSPICE CONVERSATION. CODE; DNR CORE; SCD DISP; MED SURG PROG; POOR CLINICAL STATUS; GUARDED EXPECTED DISCHARGE; TBD TOTAL TIME SPENT; 25 MINUTES DATE OF SERVICE; 07/07/2018
[2018-07-07] MEDS: Dextrose 5 %-0.45 % NaCl 1,000 ML IV SCH (16:12)
[2018-07-08] MEDS: Piperacillin/Tazobactam 3.375 GM in Sodium Chloride 0.9% 100 ML IVPB SCH ×4 (03:12→20:45)
[2018-07-08 05:03] LABS: Hemoglobin 7.7 g/dL (14.0-18.0); Mean Corpuscular HGB CONC 31.4 g/dL (32.0-36.0); Mean Corpuscular Hemoglobin 30.2 pg (27.0-31.0); Mean Corpuscular Volume 96.3 fL (78.0-98.0); Mean Platelet Volume 6.6 fL (7.4-10.4); Platelet Count 289 thou/uL (130-400); RBC Distribution Width 11.9 % (11.5-14.5); Red Blood Cell (RBC) Count 2.54 mill/uL (4.70-6.10); White Blood Cell (WBC) Count 7.1 thou/uL (4.8-10.8)
[2018-07-08 05:25] LABS: Anion Gap 11 mmol/L (10-20); BUN (Urea Nitrogen) 20 mg/dL (8.4-25.7); Calc. Creatinine Clearance 31 mL/min (70-130); Calcium 8.4 mg/dL (7.8-10.44); Carbon Dioxide 23 mmol/L (23-31); Chloride 110 mmol/L (98-107); Estimated GFR-MDRD 45; Glucose 89 mg/dL (83-110); Potassium 4.2 mmol/L (3.5-5.1); Sodium 140 mmol/L (136-145)
[2018-07-08] MEDS: Dextrose 5 %-0.45 % NaCl 1,000 ML IV SCH ×2 (06:07→20:45)
[2018-07-08] MEDS: Tamsulosin HCl 0.4 MG CAP PO SCH (08:00)
[2018-07-08] MEDS: Docusate 100 MG CAP PO SCH ×2 (08:00→20:45)
[2018-07-08] MEDS: Ascorbic Acid 500 mg Chewable Tablet PO SCH (08:01)
[2018-07-08] MEDS: Finasteride 5 MG TAB PO SCH (08:01)
[2018-07-08] MEDS: Polyethylene Glycol 3350 17 GM Packet PO SCH (08:01)
[2018-07-08] MEDS: Milk Of Magnesia 30 ML UDCUP PO SCH ×2 (08:01→20:45)
[2018-07-08] MEDS: Thiamine 100 MG TAB PO SCH (08:01)
--- NOTE | 2018-07-08 11:35 | PRG ---
DATE OF SERVICE: 07/08/2018 SUBJECTIVE: The patient is seen and examined at the bedside. Apparently, he is at his baseline mentally. He is aphasic. He does not follow much commands, very simple ones sporadically. He is able to eat his food and takes his medications. OBJECTIVE: VITAL SIGNS: Blood pressure is 143/65, pulse is 77, temperature is 98.2, respiratory rate is 24, and O2 saturation is 97% on room air. GENERAL: He does not follow my commands. He keeps his eyes closed during my visit. There is no any communication with this patient. LUNGS: Clear. HEART: S1 and S2 normal. No S3. No S4. ABDOMEN: Soft and nondistended. Bowel sounds present. EXTREMITIES: No clubbing, cyanosis, or edema. NEUROLOGIC: As mentioned above. Aphasic, not following commands. LABORATORY DATA: White count of 7.1, hemoglobin 7.7, hematocrit 24.5, and platelet count is 289,000. Sodium of 140, potassium 4.2, chloride 110, CO2 of 23, BUN 20, and creatinine 1.82. The rest of chemistry within normal limits. MICROBIOLOGY: Blood cultures x2 negative. Urine culture negative. Urine culture, no growth at 12 from cystoscopy specimen. IMPRESSION: 1. Hematuria with concerns for renal mass versus clot or combination of both in the upper collecting system, status post stenting on July [address] Wren. We are waiting for cytology to come back. 2. Pneumonia versus pneumonitis left lower lobe per CT scan. 3. Very advanced dementia and bedridden stage. 4. Anemia. We will transfuse him with 1 unit of packed red blood cells. We will check guaiac since his hemoglobin is trending down, is 7.7 this morning. 5. Parkinson disease, chronic. 6. Schizoaffective disorder, chronic. 7. Acute kidney injury. His creatinine is somewhat worse. We will continue slow rate of IV fluids at 60 mL/h. 8. Pressure ulcer, sacrum. PLAN: As mentioned above, we are waiting for cytology to come back. We are going to follow up on his urine output, which is decent so far. Urine is still bloody. We will do guaiac and transfuse him with packed red blood cells x1 unit. Job ID: [id number]
--- NOTE | 2018-07-08 13:42 | PRG ---
DATE OF SERVICE: 07/08/2018 SUBJECTIVE: The patient has had no acute events overnight. The catheter has not had to be irrigated. Appears comfortable in the bed without any obvious discomfort. OBJECTIVE: VITAL SIGNS: His vitals have been stable with T-max of 98.0, blood pressure actually little up at 152/69, and saturating 95% on room air. He has had at least a liter out over the last 24 hours and the urine itself in the tubing is now only light pink tinged and draining fine. Laboratory values reveal a stable H and H, but still significantly low at 7.7 and 24.5 with a chemistry unfortunately showing his creatinine only rising to 1.82. I called Pathology to try to get some idea about his cytology, but I have not heard back from them at this time. Yesterday, I called the number for the care coordinators for this patient and left a message stating that, I was still waiting on the cytology, but there is concern for pathology in the right kidney. I spoke with the nurse today and my more immediate concerns are whether to transfuse him. This has already been ordered for 1 unit, but if we do not do anything definitive for his pathology, whether that be benign or cancerous in the kidney, I suspect he is going to continue to bleed off and on and so whether chronic transfusions should be something could be considered or agreed upon versus something more invasive, whether that be embolization or nephrectomy. ASSESSMENT: We have a 73-year-old gentleman, who is nonverbal with significant dementia and multiple other comorbidities, now with a rising creatinine, presumably unrelated to obstruction since he is now status post a right ureteral stent on 07/06/2018 as well as hematuria from the right kidney most likely related to a malignant process, but either way is concerning for hematuria causing enough to drop his overall H and H, who will get 1 unit of blood now with the concerns for long-term management. Cytology is still pending. I will review this case with Dr. Noel, who is on over the weekend and also keep in mind that this patient originally came in with urethral trauma and the Castillo catheter should remain in until Urology orders for it to be removed because the trauma in the bulbar urethra is quite significant and I think replacing it would be difficult before that area is further healed. Job ID: [id number]
[2018-07-09] MEDS: Piperacillin/Tazobactam 3.375 GM in Sodium Chloride 0.9% 100 ML IVPB SCH ×4 (02:28→20:43)
[2018-07-09 05:52] LABS: Hemoglobin 8.9 g/dL (14.0-18.0); Mean Corpuscular HGB CONC 31.4 g/dL (32.0-36.0); Mean Corpuscular Hemoglobin 29.4 pg (27.0-31.0); Mean Corpuscular Volume 93.6 fL (78.0-98.0); Mean Platelet Volume 6.8 fL (7.4-10.4); Platelet Count 317 thou/uL (130-400); RBC Distribution Width 12.3 % (11.5-14.5); Red Blood Cell (RBC) Count 3.04 mill/uL (4.70-6.10); White Blood Cell (WBC) Count 7.1 thou/uL (4.8-10.8)
[2018-07-09 06:13] LABS: Anion Gap 10 mmol/L (10-20); BUN (Urea Nitrogen) 16 mg/dL (8.4-25.7); Calc. Creatinine Clearance 34 mL/min (70-130); Calcium 8.5 mg/dL (7.8-10.44); Carbon Dioxide 25 mmol/L (23-31); Chloride 107 mmol/L (98-107); Estimated GFR-MDRD 50; Glucose 100 mg/dL (83-110); Potassium 4.2 mmol/L (3.5-5.1); Sodium 138 mmol/L (136-145)
[2018-07-09] MEDS: Ascorbic Acid 500 mg Chewable Tablet PO SCH (09:07)
[2018-07-09] MEDS: Tamsulosin HCl 0.4 MG CAP PO SCH (09:07)
[2018-07-09] MEDS: Polyethylene Glycol 3350 17 GM Packet PO SCH (09:07)
[2018-07-09] MEDS: Milk Of Magnesia 30 ML UDCUP PO SCH ×2 (09:07→20:43)
[2018-07-09] MEDS: Finasteride 5 MG TAB PO SCH (09:07)
[2018-07-09] MEDS: Docusate 100 MG CAP PO SCH ×2 (09:07→20:43)
[2018-07-09] MEDS: Thiamine 100 MG TAB PO SCH (09:07)
[2018-07-09] MEDS: Dextrose 5 %-0.45 % NaCl 1,000 ML IV SCH (14:29)
--- NOTE | 2018-07-09 16:34 | PRG ---
DATE OF SERVICE: 07/09/2018 SUBJECTIVE: The patient is seen and examined at the bedside. He has severe dementia. He is not verbal. OBJECTIVE: VITAL SIGNS: Blood pressure is 129/59, pulse is 61, temperature is 98.8, respiratory rate is 18, O2 saturation is 98% on room air. HEENT: His sclerae are nonicteric. LUNGS: Clear. HEART: S1 and S2, normal. ABDOMEN: Soft and nondistended. EXTREMITIES: No clubbing, cyanosis, or edema. NEUROLOGIC: As I mentioned above. He does not follow my commands. He is quite severely demented and does not follow much when he is asked to. LABORATORY DATA: Showed white count of 7.1, hemoglobin 8.9, hematocrit 28.5, platelet count is 317. Normal electrolytes. Creatinine 1.65, BUN 16, and the rest of chemistry within normal limits. Microbiology: Guaiac stool is negative. IMPRESSION: 1. Hematuria with concerns for renal mass versus clot or combination of both in the upper collecting system, status post stenting on July 06, by Dr. Wren with cytology still pending. 2. Pneumonia versus pneumonitis of the left lower lobe per CT scan. 3. Very advanced dementia and bedridden stage. 4. Anemia, status post transfusion of 1 unit of packed red blood cells. His hemoglobin improved to 8.9 today. Guaiac was negative. 5. Parkinson disease, chronic. 6. Schizoaffective disorder, chronic. 7. Acute kidney injury. His creatinine is somewhat improved from 1.82 to 1.65 today, and he is getting 60 mL of IV fluids. 8. Pressure ulcer, sacrum. PLAN: As mentioned above. I am going to continue current regimen. Cytology is still pending, and Dr. Stafford should be able to get this information on Wednesday or Wednesday when he is back. The urine is still bloody in the Castillo catheter, and we are going to watch him closely. Job ID: [id number]
[2018-07-10] MEDS: Piperacillin/Tazobactam 3.375 GM in Sodium Chloride 0.9% 100 ML IVPB SCH ×4 (02:18→20:10)
[2018-07-10 06:10] LABS: Hemoglobin 9.9 g/dL (14.0-18.0); Mean Corpuscular HGB CONC 31.2 g/dL (32.0-36.0); Mean Corpuscular Hemoglobin 29.4 pg (27.0-31.0); Mean Corpuscular Volume 94.2 fL (78.0-98.0); Mean Platelet Volume 6.6 fL (7.4-10.4); Platelet Count 331 thou/uL (130-400); RBC Distribution Width 12.5 % (11.5-14.5); Red Blood Cell (RBC) Count 3.36 mill/uL (4.70-6.10); White Blood Cell (WBC) Count 7.2 thou/uL (4.8-10.8)
[2018-07-10 06:29] LABS: Anion Gap 11 mmol/L (10-20); BUN (Urea Nitrogen) 13 mg/dL (8.4-25.7); Calc. Creatinine Clearance 34 mL/min (70-130); Calcium 8.8 mg/dL (7.8-10.44); Carbon Dioxide 24 mmol/L (23-31); Chloride 105 mmol/L (98-107); Estimated GFR-MDRD 50; Glucose 97 mg/dL (83-110); Potassium 4.2 mmol/L (3.5-5.1); Sodium 136 mmol/L (136-145)
[2018-07-10] MEDS: Dextrose 5 %-0.45 % NaCl 1,000 ML IV SCH ×3 (06:30→20:08)
[2018-07-10] MEDS: Thiamine 100 MG TAB PO SCH (09:25)
[2018-07-10] MEDS: Docusate 100 MG CAP PO SCH ×2 (09:25→20:09)
[2018-07-10] MEDS: Ascorbic Acid 500 mg Chewable Tablet PO SCH (09:25)
[2018-07-10] MEDS: Finasteride 5 MG TAB PO SCH (09:26)
[2018-07-10] MEDS: Polyethylene Glycol 3350 17 GM Packet PO SCH (09:26)
[2018-07-10] MEDS: Tamsulosin HCl 0.4 MG CAP PO SCH (09:26)
[2018-07-10] MEDS: Milk Of Magnesia 30 ML UDCUP PO SCH ×2 (09:26→20:09)
--- NOTE | 2018-07-10 15:00 | PDOC.PN ---
- Subjective Encounter Start Date: 07/10/18 Encounter Start Time: 14:58 Mr. Locke was seen today in follow-up of hematuria. He is resting in bed, he appears comfortable. He is not able to express his concerns. - Objective Resuscitation Status - Order Detail: 07/05/18 14:33 Resuscitation Status Routine Resuscitation Status: DNAR: NO Resuscitation Discussed with: ELEN PEARCE-METALLURGICAL ANALYST FROM [facility] Reviewed: Yes Vital Signs & Weight: Vital Signs (12 hours) Temp Pulse Resp BP Pulse Ox 07/10/18 11:05 98.4 F 60 12 128/67 96 07/10/18 08:00 100 07/10/18 07:48 98 F 57 L 13 122/66 100 07/10/18 04:15 98.2 F 74 14 122/64 100 Weight Weight 129 lb 14.342 oz I&O: 07/09/18 07/10/18 07/11/18 06:59 06:59 06:59 Intake Total 2300 2330 Output Total 1800 2100 Balance 500 230 Result Diagrams: 07/10/18 05:45 07/10/18 05:45 Phys Exam - Physical Examination Respiratory: no wheezing, no rales, no rhonchi, clear to auscultation bilateral Cardiovascular: RRR, no significant murmur, no rub Gastrointestinal: soft, non-tender, no distention, positive bowel sounds Musculoskeletal: no edema, pulses present + muscle wasting Dx/Plan (1) LISA (acute kidney injury) Code(s): N17.9 - ACUTE KIDNEY FAILURE, UNSPECIFIED Status: Acute (2) Arsalan hematuria Status: Acute (3) Dementia Code(s): F03.90 - UNSPECIFIED DEMENTIA WITHOUT BEHAVIORAL DISTURBANCE Status: Chronic Qualifiers: Dementia type: Parkinson's disease (4) Severe malnutrition Code(s): E43 - UNSPECIFIED SEVERE PROTEIN-CALORIE MALNUTRITION Status: Chronic - Plan * Hematuria- continue work-up as per Urology * Continue bladder irrigation as needed. * His H&H has remained stable * Acute kidney injury- his renal function has remained about the same * Advanced dementia- stable
[2018-07-11] MEDS: Piperacillin/Tazobactam 3.375 GM in Sodium Chloride 0.9% 100 ML IVPB SCH ×4 (02:23→20:15)
[2018-07-11 08:48] LABS: Platelet Count 377 thou/uL (130-400)
[2018-07-11] MEDS: Docusate 100 MG CAP PO SCH ×2 (08:50→20:16)
[2018-07-11] MEDS: Milk Of Magnesia 30 ML UDCUP PO SCH ×2 (08:51→20:16)
[2018-07-11] MEDS: Polyethylene Glycol 3350 17 GM Packet PO SCH (08:51)
[2018-07-11] MEDS: Finasteride 5 MG TAB PO SCH (09:08)
[2018-07-11] MEDS: Thiamine 100 MG TAB PO SCH (09:08)
[2018-07-11] MEDS: Ascorbic Acid 500 mg Chewable Tablet PO SCH (09:08)
[2018-07-11] MEDS: Tamsulosin HCl 0.4 MG CAP PO SCH (09:08)
--- NOTE | 2018-07-11 16:04 | PDOC.PN ---
- Subjective Encounter Start Date: 07/11/18 Encounter Start Time: 16:02 Mr. Locke was seen today in follow-up. He appears comfortable. - Objective Resuscitation Status - Order Detail: 07/05/18 14:33 Resuscitation Status Routine Resuscitation Status: DNAR: NO Resuscitation Discussed with: ELEN PEARCE-BLACK OXIDE COATING EQUIPMENT TENDER FROM [facility] Reviewed: Yes Vital Signs & Weight: Vital Signs (12 hours) Temp Pulse Resp BP Pulse Ox 07/11/18 15:15 98.0 F 76 20 134/65 98 07/11/18 11:50 98.7 F 61 18 139/68 92 L 07/11/18 07:34 98.5 F 52 L 18 136/58 L 100 07/11/18 04:36 98.1 F 61 16 134/62 95 Weight Weight 129 lb 14.342 oz I&O: 07/10/18 07/11/18 07/12/18 06:59 06:59 06:59 Intake Total 2330 2160 Output Total 2100 2550 Balance 230 -390 Result Diagrams: 07/11/18 08:28 07/10/18 05:45 Phys Exam - Physical Examination HEENT: PERRLA Respiratory: no wheezing, no rales, no rhonchi, clear to auscultation bilateral Cardiovascular: RRR, no significant murmur, no rub Gastrointestinal: soft, non-tender, no distention, positive bowel sounds Musculoskeletal: no edema + muscle wasting and contractures of the lower extremities Dx/Plan (1) LISA (acute kidney injury) Code(s): N17.9 - ACUTE KIDNEY FAILURE, UNSPECIFIED Status: Acute (2) Arsalan hematuria Status: Acute (3) Dementia Code(s): F03.90 - UNSPECIFIED DEMENTIA WITHOUT BEHAVIORAL DISTURBANCE Status: Chronic Qualifiers: Dementia type: Parkinson's disease (4) Severe malnutrition Code(s): E43 - UNSPECIFIED SEVERE PROTEIN-CALORIE MALNUTRITION Status: Chronic - Plan * Hematuria- the urine is clearing * Management by Urology is in progress * Dr. Baumann to resume care today.
--- NOTE | 2018-07-11 16:05 | PRG ---
DATE OF SERVICE: 07/11/2018 SUBJECTIVE: There were no significant events over the weekend. His creatinine is improved a little bit, but still is elevated. The catheter has been draining fine without difficulty, still blood-tinged, sometime clearing. His H and H remained stable after 1 unit transfused. OBJECTIVE: On exam, he has been afebrile. Vital signs are stable. Good urine output. Catheter is secured appropriately and draining pink-tinged urine. There is still some hematuria around the catheter which was secured appropriately. LABORATORY AND DIAGNOSTIC DATA: His laboratories revealed a creatinine that is stabilized at 1.66 with it's peak at 1.82 previously. His H and H are stable at 10.0 and 31.7. All the urine from the OR showed no concern for infection and no concern for any malignant cells. A review of the CT scan again with contrast showed no renal parenchymal concerns or obvious AVM, and there was a concern for the hematuria within the right collecting system with mild hydro. There was no obvious mass within that. No definitive filling defect. ASSESSMENT AND PLAN: We have a 73-year-old gentleman with traumatic Castillo, but hematuria likely prior to that from an unknown etiology in the right kidney, that does not appear to be an obvious malignancy at this time and has stabilized. At this time, it has been almost 7 days since the catheter was placed by myself overnight last Wednesday to Wednesday, evening to morning. At this time, I will anticipate writing for the catheter to come out early in the morning, so that during daytime hours, we can monitor his voiding and emptying. If there is concern for a need for a catheter, I can be the one to replace it. Hopefully, we can leave it out and ensure that he is draining adequately. With respect to his hematuria from the right renal unit--given that there is unlikely a desire or an appropriateness for any major operations at this time, we will continue just to monitor as opposed to doing any further diagnostic studies at this time. If he is voiding without the catheter, and his H&H are stable, then he would be appropriate for discharge in the coming days. Job ID: [id number] MTDD
[2018-07-11] MEDS: Dextrose 5 %-0.45 % NaCl 1,000 ML IV SCH (20:14)
[2018-07-12] MEDS: Piperacillin/Tazobactam 3.375 GM in Sodium Chloride 0.9% 100 ML IVPB SCH ×4 (03:00→21:16)
[2018-07-12] MEDS ORDERED: Lidocaine 2% PF 100 mg/5 ml Syringe ONE (07:56)
[2018-07-12 07:59] LABS: Hemoglobin 10.7 g/dL (14.0-18.0)
[2018-07-12] MEDS: Polyethylene Glycol 3350 17 GM Packet PO SCH (09:58)
[2018-07-12] MEDS: Docusate 100 MG CAP PO SCH ×2 (09:58→21:17)
[2018-07-12] MEDS: Milk Of Magnesia 30 ML UDCUP PO SCH ×2 (09:58→21:17)
[2018-07-12] MEDS: Finasteride 5 MG TAB PO SCH (10:04)
[2018-07-12] MEDS: Tamsulosin HCl 0.4 MG CAP PO SCH (10:04)
[2018-07-12] MEDS: Thiamine 100 MG TAB PO SCH (10:05)
[2018-07-12] MEDS: Ascorbic Acid 500 mg Chewable Tablet PO SCH (10:05)
[2018-07-12] MEDS ORDERED: Lidocaine 2% 11 ML SYR TOP SCH (10:15)
[2018-07-12 15:16] LABS: Hemoglobin 10.3 g/dL (14.0-18.0)
[2018-07-12 15:39] LABS: INR-International Normal Ratio 1.2
[2018-07-12 15:40] LABS: PTT 104.5 SEC (22.9-36.1)
--- NOTE | 2018-07-12 16:44 | PRG ---
DATE OF SERVICE: 07/12/2018 SUBJECTIVE: I thought 7 days would be long enough for the catheter trauma to heal, so I ordered for the Figueroa to come out at 2AM. I got a phone call at 3AM, stating that there is significant amount of clots of blood coming from the penis. I had them hold pressure. Ultimately this did not need anything at that time. I had them check an H and H in the AM, and it was actually improved from the day prior. I saw him in the morning and there were definitely clots still noted. As I was there, I watched him void a significant amount of pink-tinged urine; he was bladder scanned for only small amounts thereafter. However, throughout the day, unfortunately, he continued to have large clots, despite continuing to empty. I was able to see the clots as they collected them in a bag hanging from the penis. At this point, despite the fact that he is emptying his bladder, I was concerned that he needed a catheter back in to tamponade the urethral bleeding from the prior misplaced Figueroa. He was prepped in sterile fashion and then an 18-Bengali coude was placed without difficulty. I hand irrigated the bladder for small amount of clot until it was clear and secured. Other input: his vitals have been stable. As previously mentioned, his H and H are good--even a repeat from this afternoon. His coags however show an extremely elevated PTT despite no platelet therapy that I can see. Other communication: I did speak with Anna from his care services and relayed the events of the day prior to me putting the catheter back in. I did tell her that if it had to go back and it would remain for some time, so she has partially updated. She denied any concern for trauma to the right flank (none noted externally) as a source of hematuria from that kidney. I also informed her of the misplaced figueroa so that whomever did that could be further educated. She also did not know why it was or who originally misplaced it. I did not have the abnormal PTT back when I spoke with her--so she was not aware of this new abnormal finding. ASSESSMENT/PLAN: 73-year-old male with urethral trauma, now actively bleeding/ persistently oozing from this prior traumatic site after figueroa removal and complicated by a coagulopathy of unknown origin at this time. I defer the latter finding to medicine for further explanation/ investigation. I suspect the Figueroa catheter in place will help tamponade the bleed despite the hemopathology. He was also bleeding from the right kidney that as best I can tell is not related to any obvious mass or cancer and has now stopped. He is status post ureteral stent on the right for hydro related to presumed clot/ hematuria. It did not really help his creatinine, which has now remained slightly elevated. All recent blood and urine cultures have remained negative. I would continue antibiotics for now given the manipulation from today, but I suspect from my standpoint, these can be stopped in the next 3 days or so (giving him a 10-day treatment). Job ID: [id number] MTDD
[2018-07-12] MEDS: Dextrose 5 %-0.45 % NaCl 1,000 ML IV SCH (21:15)
[2018-07-13] MEDS: Sodium Chloride 0.9% 1,000 ML IV SCH ×3 (01:28→17:57)
[2018-07-13 01:53] LABS: Hemoglobin 8.1 g/dL (14.0-18.0)
[2018-07-13] MEDS: Piperacillin/Tazobactam 3.375 GM in Sodium Chloride 0.9% 100 ML IVPB SCH ×4 (02:05→20:37)
[2018-07-13 06:51] LABS: Hemoglobin 7.7 g/dL (14.0-18.0)
[2018-07-13] MEDS: Ascorbic Acid 500 mg Chewable Tablet PO SCH (10:23)
[2018-07-13] MEDS: Finasteride 5 MG TAB PO SCH (10:23)
[2018-07-13] MEDS: Tamsulosin HCl 0.4 MG CAP PO SCH (10:23)
[2018-07-13] MEDS: Thiamine 100 MG TAB PO SCH (10:23)
[2018-07-13 10:24] LABS: PT - Undiluted 15.3 SEC (12.0-14.7); PTT - Undiluted 104.1 SEC (22.9-36.1)
[2018-07-13] MEDS: Polyethylene Glycol 3350 17 GM Packet PO SCH (10:24)
[2018-07-13] MEDS: Milk Of Magnesia 30 ML UDCUP PO SCH ×2 (10:24→20:38)
[2018-07-13] MEDS: Docusate 100 MG CAP PO SCH ×2 (10:24→20:38)
[2018-07-13 10:34] LABS: Thrombin Time 16.3 secs (14.3-20.0)
[2018-07-13 11:32] LABS: PTT 1:1 Mix 60.8 SEC
[2018-07-13 12:26] LABS: PT 1:1 37C-90 min. Incubation 13.5 SEC; PTT 1:1 37C/90 MIN Incubation 85.5 SEC
--- NOTE | 2018-07-13 13:28 | PRG ---
DATE OF SERVICE: 07/13/2018 SUBJECTIVE: Unfortunately after I had to replace his catheter and then irrigated it, he persisted with significant hematuria. The person on-call for me overnight was called with further concerns. She checked blood count and was noted to have drop significantly and so ordered FFP given the low PTT as well as blood given the further drop. So this was all initiated as well. At the same time, there was significant confusion regarding the medicine doctor, who was following him as the Sound team thought Dr. Stafford was back, but after multiple calls myself trying to figure this out, I was able to speak with Dr. Stafford. Initially, I was told he was out of town till Wednesday and yes indeed he did return my call and confirmed that he is not available and that the Sound team should be covering him. I made phone calls to them and although, I have not received those in return they have been in contact with the patient's nurse and are aware that they need to now be covering him while Dr. Stafford is away. I spoke to Anna, his family caseworker yesterday and this morning giving her an update in the concern for now significant bleeding disorder that could be responsible for spontaneous bleeding, but certainly now was contributing to his urethral bleeding from prior traumatic Castillo insertion and now removal and replacement. She is agreeable to a central line if he does need this, but at this time, we were able to give all his replacements without that. I returned multiple times throughout the day to check on this patient. I spoke with heme/onc about his PTT and ordered special labs via our lab based on their recommendations. They will also now get involved with the patient. When I returned on one occasion in the afternoon, Dr. Valles came to the bedside as well, and is back involved with his care. She will order vit K. PHYSICAL EXAMINATION: He has been afebrile and his blood pressure did drop to systolic in the 90s overnight, but was back up to systolic in the 100s by the time I examined him. He did become tachycardic a little bit for a small amount of time overnight, but otherwise has remained in the 70s to 80s. He has been saturating well on room air. On exam, the catheter is draining dark blood urine without any obvious clots and does not need to be irrigated and continued to drain overnight, but I did hand irrigate and got a small amount of clot back, otherwise it was just blood- tinged. So at this point, instead of changing the catheter to a larger one because he already has an 18-Swedish and this is a good bore for irrigation clot. I put more in the balloon and put it on traction and then placed a gauze around the tip of the penis at the catheter site in order to create a tamponade effect of his urethral bleeding as well as putting a cloth at the perineum to provide direct pressure of this area. At lunch, he was still having trouble with clots, and I attempted to irrigate the bladder. I could not tell if the bladder was decompressed or had clot. I wanted to change this to a 3-way if we needed. it. I could not pass a 24h3 way despite my attempts. I waited for the cystoscopy. When I returned about 1:30 later, there was not a lot of clot and some urine noted. It was difficult to assess bladder distension due to guarding. To prevent future concerns/issues, I felt it best to replace the large-bore catheter. Flexible cystoscope used to traverse the traumatic false passed, wire left in place, and scope removed. Before removing, I attempted to inspect the bladder; there was no obvious clot. I placed a 24F 3-way over the wire. I plugged the third port. I hand irrigated for better return. I secured this. LABORATORY VALUES: Reveal an H and H that went from 10.3 and 34.1 yesterday afternoon down to 7.7 and 24.5 this morning. The PTT from yesterday was 104.5. INR was 1.2 and PT 15.0. ASSESSMENT: We have a 73-year-old male with multiple comorbidities and unfortunately without any family or friends to help in decision-making process for him, who came in after traumatic Castillo with hematuria that does not appear to be related to any source of infection, but rather now more likely related to spontaneous bleed of the right kidney status post stent that did not help his renal insufficiency, who was improving with hematocrit and hemoglobin stable. Then catheter removal started significant urethral bleedin again secondary to clotting deficiency. Hematology now involved, and their assistance is appreciated. Continue giving him his FFP and blood and check more labs. Continue the tamponade with 24F catheter but hold CBI for now. I do not think any surgical intervention will help bleeding as long as he has a significant abnormality in his PTT So at this point, he can eat and drink, and we will monitor carefully. Job ID: [id number] MACIEL
[2018-07-13] MEDS: Cyanocobalamin 1000 MCG/ML VIAL IM SCH (13:53)
--- NOTE | 2018-07-13 14:30 | PDOC.PN ---
- Subjective Encounter Start Date: 07/13/18 Encounter Start Time: 14:28 Mr. Locke was seen today in follow-up of hematuria. He had significant bleeding yesterday after removal of the catheter. - Objective Resuscitation Status - Order Detail: 07/05/18 14:33 Resuscitation Status Routine Resuscitation Status: DNAR: NO Resuscitation Discussed with: ELEN PEARCE-INSURANCE SALES AGENT FROM [facility] Reviewed: Yes Vital Signs & Weight: Vital Signs (12 hours) Temp Pulse Pulse Resp BP BP Pulse Ox 07/13/18 14:00 98.4 F 101 H 18 100/65 96 07/13/18 11:46 98.3 F 80 16 119/63 93 L 07/13/18 11:00 97.9 F 80 18 124/67 07/13/18 09:35 98.2 F 70 18 103/61 99 07/13/18 09:20 98.2 F 78 18 117/64 07/13/18 08:37 98.6 F 79 18 123/69 07/13/18 08:34 97.6 F 70 14 105/64 07/13/18 07:00 98.4 F 76 18 102/62 98 07/13/18 06:45 98.4 F 105 H 18 98/61 98 07/13/18 05:50 98.4 F 76 16 102/62 98 07/13/18 04:20 98.4 F 89 16 92/49 L 98 07/13/18 04:00 97.3 F L 80 80 16 92/53 L 92/58 L 98 Weight Weight 129 lb 14.342 oz I&O: 07/12/18 07/13/18 07/14/18 06:59 06:59 06:59 Intake Total 3860 3470 0 Output Total 2400 575 Balance 1460 2895 0 Result Diagrams: 07/13/18 06:41 07/10/18 05:45 Phys Exam - Physical Examination Respiratory: no wheezing, no rales, no rhonchi, clear to auscultation bilateral Cardiovascular: RRR, no significant murmur, no rub Gastrointestinal: soft, non-tender, no distention, positive bowel sounds Musculoskeletal: no edema + muscle wasting Dx/Plan (1) Coagulopathy Status: Acute (2) LISA (acute kidney injury) Code(s): N17.9 - ACUTE KIDNEY FAILURE, UNSPECIFIED Status: Acute (3) Arsalan hematuria Status: Acute (4) Dementia Code(s): F03.90 - UNSPECIFIED DEMENTIA WITHOUT BEHAVIORAL DISTURBANCE Status: Chronic Qualifiers: Dementia type: Parkinson's disease (5) Severe malnutrition Code(s): E43 - UNSPECIFIED SEVERE PROTEIN-CALORIE MALNUTRITION Status: Chronic - Plan * Coagulopathy- Discussed with Dr. Wren. He has an elevated PT and PTT, which corrects with a 1:1 mix. This usually indicates a factor deficiency. I suspect this is nutritional, as I doubt he has a congenital defect * Will supplement with Vitamin K, and continue thiamin and folic acid * Transfuse for low HGB * Dementia- stable.
[2018-07-13 14:33] LABS: #Basophils 0.1 thou/uL (0.0-0.2); #Eosinphils 0.3 thou/uL (0.0-0.7); #Lymphocytes 1.2 thou/uL (1.20-3.40); #Neutrophils 7.8 thou/uL (1.40-6.50); %Basophils 0.7 % (0.0-1.0); %Eosinophils 3.2 % (0.0-10.0); %Lymphocytes 11.4 % (21.0-51.0); %Monocytes 9.4 % (0.0-10.0); %Neutrophils 75.4 % (42.0-75.0); Hemoglobin 6.5 g/dL (14.0-18.0); Mean Corpuscular HGB CONC 32.1 g/dL (32.0-36.0); Mean Corpuscular Hemoglobin 30.5 pg (27.0-31.0); Mean Platelet Volume 6.6 fL (7.4-10.4); Platelet Count 369 thou/uL (130-400); RBC Distribution Width 13.4 % (11.5-14.5); Red Blood Cell (RBC) Count 2.14 mill/uL (4.70-6.10); White Blood Cell (WBC) Count 10.3 thou/uL (4.8-10.8)
[2018-07-13] MEDS ORDERED: Phytonadione 10 MG/ML AMP PO SCH (14:45)
[2018-07-13 14:53] LABS: Iron Binding Capacity, Total 239 mcg/dL (261-462)
[2018-07-13 14:54] LABS: Iron 45 ug/dL (65-175)
[2018-07-13] MEDS: Dextrose 5 %-0.45 % NaCl 1,000 ML IV SCH (17:57)
--- NOTE | 2018-07-13 19:09 | CON ---
DATE OF CONSULTATION: REASON FOR CONSULTATION: Coagulopathy. HISTORY OF PRESENT ILLNESS: Mr. Locke is a 73-year-old gentleman with a past medical history of Parkinson disease, protein deficiency malnutrition, dysphagia, and chronic anemia, who initially presented to the emergency room on July 04 with hematuria. His hemoglobin on the first draw was 5.5, on redraw it was 10.1. He did not receive blood transfusion during that visit. He returned to the [place] [facility], but continued to have hematuria, so again presented to the emergency room on July 06. His hemoglobin at that time was 8.5. He was admitted for further evaluation. Urology has seen the patient and performed a cystoscopy which showed inflammation, possibly secondary to traumatic catheterization at the [place] [facility]. A Castillo cath was placed and has been in place over the last several days. He has continued to have significant hematuria. His hemoglobin has dropped to a current level of 7.7. He has received multiple units of FFP with improvement in his PT to 15. His INR is 1.2 and his PTT is 104.5. We were asked to see the patient regarding coagulopathy. Review of medical records shows a lab work done in the [facility] on 07/04. There, the patient's B12 was 57 and folic acid was less than 1. PAST MEDICAL HISTORY: 1. Parkinson disease with dementia. 2. Chronic anemia. 3. Blindness. 4. Schizoaffective disorder. 5. Severe dysphagia. 6. Aspiration pneumonia. 7. Transaminitis. PAST SURGICAL HISTORY: None found in chart. ALLERGIES: NO KNOWN DRUG ALLERGIES. HOME MEDICATIONS: 1. daily. 2. Levaquin daily for urinary tract infection. 3. Milk of mag daily. 4. MVI daily. 5. B1 daily. 6. Vitamin C daily. 7. Zofran p.r.n. FAMILY HISTORY: Noncontributory. SOCIAL HISTORY: The patient is awake. He is nonverbal and history was obtained from medical records. REVIEW OF SYSTEMS: Unable to obtain. PHYSICAL EXAMINATION: VITAL SIGNS: Temperature is 98.3, pulse is 80, respiratory rate 16, BP is 119/ 63. He is 93% on room air. GENERAL: This is a cachectic male, in no acute distress. HEENT: Normocephalic and atraumatic. He does not open his eyes. NECK: Supple. CV: Regular rate and rhythm. LUNGS: Clear. ABDOMEN: Soft. EXTREMITIES: No clubbing, cyanosis, or edema. SKIN: No rash. HEMATOLOGIC: He has dark red urine in his Castillo catheter. NEUROLOGIC: The patient has a tremor with contractures, otherwise unable to assess function. PERTINENT LABS AND X-RAYS: Current WBCs are 7.2, hemoglobin 7.7, hematocrit 24.5, platelet count is 331,000. PT is 15, INR 1.2, PTT is 104.5. Sodium 136, potassium 4.2, chloride 105, CO2 is 24, BUN is 13, creatinine 1.66, calcium is 8.8, bilirubin 0.7, AST is 27, ALT is 42, alkaline phosphatase is 89. Serum total protein 6.4, albumin 3.0, globulin 3.4. PSA is 1.94. ASSESSMENT: 1. Hematuria. 2. Coagulopathy with elevated PT, PTT, and INR on admission. 3. Chronic anemia. 4. Severe B12 and folate deficiency. DISCUSSION: The patient has a mixing study in progress and currently pending.He clearly has a nutritional deficiency with extremely low B12 and folate levels. We will begin repletion with IM injections. We would check iron studies as he has significant bleeding and maybe iron deficient, contributing to his low hemoglobin. Agree with FFP and blood transfusion. Case was discussed with Dr. Torres and Dr. Franco who will see the patient later today. Thank you for the consult. Job ID: [id number] MTDD
[2018-07-14] MEDS: Piperacillin/Tazobactam 3.375 GM in Sodium Chloride 0.9% 100 ML IVPB SCH ×4 (03:12→21:22)
[2018-07-14] MEDS: Sodium Chloride 0.9% 1,000 ML IV SCH ×3 (03:12→21:22)
[2018-07-14] MEDS: Milk Of Magnesia 30 ML UDCUP PO SCH ×2 (08:34→21:22)
[2018-07-14] MEDS: Polyethylene Glycol 3350 17 GM Packet PO SCH (08:34)
[2018-07-14] MEDS: Finasteride 5 MG TAB PO SCH (08:35)
[2018-07-14] MEDS: Tamsulosin HCl 0.4 MG CAP PO SCH (08:35)
[2018-07-14] MEDS: Folic Acid 1 MG TAB PO SCH (08:35)
[2018-07-14] MEDS: Docusate 100 MG CAP PO SCH ×2 (08:35→21:22)
[2018-07-14] MEDS: Thiamine 100 MG TAB PO SCH (08:35)
[2018-07-14] MEDS: Ascorbic Acid 500 mg Chewable Tablet PO SCH (08:35)
[2018-07-14] MEDS ORDERED: Cyanocobalamin 1000 MCG/ML VIAL IM SCH (09:00)
--- NOTE | 2018-07-14 10:14 | CON ---
DATE OF CONSULTATION: 07/13/2018 REASON FOR CONSULTATION: coagulopathy HISTORY OF PRESENT ILLNESS: Please see nurse practitioner, Kelli Montes's note for full consult. The patient is nonverbal,dementia secondary to Parkinson's disease and not respond to voice or touch. He lies in bed with his eyes shut. Since a figueroa insertion he has had diffuse bleeding. Hemoglobin highest was 10.7, currently 6.5. He has had 4 units of FFP. He has coagulopathy with an INR of 2.1, PT of 23.6, and PTT of 137.2. PHYSICAL EXAMINATION: VITAL SIGNS: Temperature 98.7, pulse 96, saturating 100% on room air. Respirations 18. Blood pressure 99/63. GENERAL APPEARANCE: The patient lying in bed. He does not respond to touch or verbal cues. LUNGS: Respirations nonlabored. HEART: Regular rhythm and rate. ABDOMEN: Soft, nondistended, nontender. Does not cooperate with exam. LABORATORY DATA: Hb 6.5, platelets 369. Sodium 136, potassium 4.2, BUN 13, creatinine 1.66. Iron 45, TIBC 239, percent iron saturation 18. Ferritin 216.51. PT 23.6, INR 2.1. PTT 137.2. Currently PT 15, INR 1.2, and PTT 104.5. On mixing study PTT did not correct. 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 ASSESSMENT AND PLAN: A 73-year-old male with severe Parkinson' s related dementia, nonverbal and contracted with continued traumatic urologic bleed after Figueroa catheter insertion. His hemoglobin has dropped 4 g and is currently 6.5, received 4 units of fresh frozen plasma and is currently receiving blood. 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 Factor inhibitors can be treated with plasmapheresis, which I do not believe this patient would tolerate and would require a transfer to a facility with a high level of care, insertion of large catheter to facilitate plasmapheresis and with his current hemoglobin and hypotension he may not be able to tolerate the procedure. He is also currently a DNR. Another option is NovoSeven or Factor 8 concentrate dependent on [place] inhibitor titer. This is not necessarily needed at this time. The patient has Received 4 units of FFP and requires blood transfusions. If after scheduled 2 units of packed red blood cells, his hemoglobin improves appropriately and remains stable, then he should not require correction of inhibitor immediately. We will re-evaluate him after patient has received his blood transfusions, and see if the bleeding slows. Will follow along with you. Job ID: [id number] MTDD
[2018-07-14 11:15] LABS: Hemoglobin 8.4 g/dL (14.0-18.0); Mean Corpuscular HGB CONC 32.1 g/dL (32.0-36.0); Mean Corpuscular Hemoglobin 30.4 pg (27.0-31.0); Mean Corpuscular Volume 94.6 fL (78.0-98.0); Mean Platelet Volume 6.4 fL (7.4-10.4); Platelet Count 319 thou/uL (130-400); RBC Distribution Width 12.9 % (11.5-14.5); Red Blood Cell (RBC) Count 2.77 mill/uL (4.70-6.10); White Blood Cell (WBC) Count 9.2 thou/uL (4.8-10.8)
[2018-07-14 11:32] LABS: Anion Gap 12 mmol/L (10-20); BUN (Urea Nitrogen) 13 mg/dL (8.4-25.7); Calc. Creatinine Clearance 35 mL/min (70-130); Calcium 8.4 mg/dL (7.8-10.44); Carbon Dioxide 20 mmol/L (23-31); Chloride 111 mmol/L (98-107); Estimated GFR-MDRD 51; Glucose 108 mg/dL (83-110); Potassium 3.6 mmol/L (3.5-5.1); Sodium 139 mmol/L (136-145)
[2018-07-14] MEDS: Dextrose 5 %-0.45 % NaCl 1,000 ML IV SCH (12:54)
[2018-07-14] MEDS: Cyanocobalamin 1000 MCG/ML VIAL IM SCH (13:05)
--- NOTE | 2018-07-14 13:46 | PRG ---
DATE OF SERVICE: 07/14/2018 SUBJECTIVE: After significant involved yesterday, the patient actually was relatively stable and had no acute events overnight. This morning, Dr. 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 She and I reviewed in detail the options presented in front of him and both agreed, that if he continues to bleed , inpatient hospice would be appropriate, but certainly hospice would be appropriate in general. OBJECTIVE: He is lying comfortably in the bed. He has remained afebrile. His vital signs stable. Blood pressure up to 118/52 since replacement and saturating 98% on room air. Urine output is increased and listed as 1160. However, based on the catheter, I am concerned that some of this is slow blood use as opposed to all urine, but it certainly does look like he responded well to his replacement as there is only a small amount of blood on his gown around the penis at the catheter site and there are no large clots as there had been yesterday, but there is dark urine draining in the tubing. His abdomen is relatively soft and is not concerning for firm abdomen. LABORATORY DATA: His H and H go down to the 6.5 and 20.3 that was even with some blood products, but now has responded appropriately and is 8.4 and 26.2. His creatinine is stable at 1.62. ASSESSMENT: We have a 73-year-old man admitted originally with now appears to be a spontaneous bleed of the right collecting system, admitted with an improperly placed Castillo that caused significant urethral trauma that was originally scoped in, and then when he was stabilized after a week removing the catheter caused profuse urethral bleeding due to his now rare bleeding disorder that has somewhat stabilized at this time after having to re-scope and a 24-Syrian 3-way, which is plugged from the irrigation port and has not required irrigation thus far, but this is clearly still draining bloody urine. He also is status post right ureteral stent given his hydro and increasing creatinine, which did not improve from that placement, but is still indwelling at this time. Heme-Onc assistance is much appreciated, and I expect that after their conversation with the sales development executive, the patient will be placed on hospice. If he is stabilized and no longer bleeding, this may be appropriate as an outpatient setting. Job ID: [id number] [facility]
--- NOTE | 2018-07-14 14:39 | PDOC.PN ---
- Subjective Encounter Start Date: 07/14/18 Encounter Start Time: 14:38 Mr. Locke was seen today in follow-up of hematuria and coagulopathy. He appears comfortable. He is non-verbal. - Objective Resuscitation Status - Order Detail: 07/05/18 14:33 Resuscitation Status Routine Resuscitation Status: DNAR: NO Resuscitation Discussed with: ANNA MCDERMOTT-BUFFET WAITER/WAITRESS FROM [facility] Reviewed: Yes Vital Signs & Weight: Vital Signs (12 hours) Temp Pulse Resp BP Pulse Ox 07/14/18 11:58 98.4 F 62 18 98/48 L 98 07/14/18 08:27 98.2 F 59 L 16 143/66 H 98 07/14/18 04:36 98.1 F 64 16 118/52 L 100 Weight Admit Weight 129 lb 14.24 oz Weight 129 lb 14.342 oz I&O: 07/13/18 07/14/18 07/15/18 06:59 06:59 06:59 Intake Total 3470 3060 Output Total 575 1160 Balance 2895 1900 Result Diagrams: 07/14/18 10:58 07/14/18 10:58 Phys Exam - Physical Examination Respiratory: no wheezing, no rales, no rhonchi, clear to auscultation bilateral Cardiovascular: RRR, no significant murmur, no rub Gastrointestinal: soft, non-tender, no distention, positive bowel sounds Musculoskeletal: no edema + contractures and muscle wasting Dx/Plan (1) Coagulopathy Status: Acute (2) LISA (acute kidney injury) Code(s): N17.9 - ACUTE KIDNEY FAILURE, UNSPECIFIED Status: Acute (3) Arsalan hematuria Status: Acute (4) Dementia Code(s): F03.90 - UNSPECIFIED DEMENTIA WITHOUT BEHAVIORAL DISTURBANCE Status: Chronic Qualifiers: Dementia type: Parkinson's disease (5) Severe malnutrition Code(s): E43 - UNSPECIFIED SEVERE PROTEIN-CALORIE MALNUTRITION Status: Chronic - Plan * Coagulopathy- discussed with Dr. Torres. 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
[2018-07-14 16:53] LABS: Hemoglobin 9.1 g/dL (14.0-18.0)
[2018-07-15] MEDS: Sodium Chloride 0.9% 1,000 ML IV SCH ×3 (03:47→18:49)
[2018-07-15] MEDS: Dextrose 5 %-0.45 % NaCl 1,000 ML IV SCH (03:47)
[2018-07-15] MEDS: Piperacillin/Tazobactam 3.375 GM in Sodium Chloride 0.9% 100 ML IVPB SCH ×3 (03:47→15:57)
[2018-07-15 07:42] LABS: Hemoglobin 8.6 g/dL (14.0-18.0); Mean Corpuscular HGB CONC 33.2 g/dL (32.0-36.0); Mean Corpuscular Hemoglobin 31.5 pg (27.0-31.0); Mean Corpuscular Volume 94.9 fL (78.0-98.0); Mean Platelet Volume 6.3 fL (7.4-10.4); Platelet Count 367 thou/uL (130-400); Red Blood Cell (RBC) Count 2.71 mill/uL (4.70-6.10); White Blood Cell (WBC) Count 8.6 thou/uL (4.8-10.8)
[2018-07-15 08:38] LABS: INR-International Normal Ratio 1.2
[2018-07-15 08:40] LABS: PTT 100.6 SEC (22.9-36.1)
--- NOTE | 2018-07-15 09:29 | PRG ---
DATE OF SERVICE: 07/15/2018 SUBJECTIVE: The patient has been stable overnight. There has been no concerns for clots or need to irrigate the catheter; however, it remains significantly bloody. Yesterday, I spoke with Anna after Dr. Torres had, and we just reviewed his new diagnosis and the concerns related to trying to treat his bleeding disorder. I reviewed with her how I do not recommend pursuing treatment for him based on his other co- morbidities; personally I feel doing so would be inappropriate at this time. PHYSICAL EXAMINATION: VITAL SIGNS: He has been afebrile. Vital signs stable, saturating 100% on room air. He actually has some episodes of hypertension, now up to 159/79 and pulse ranging from 50s to 93. GENERAL: On exam, he is currently getting blood draw, I think that is for PT and PTT. I changed the bag to the other side based on the catheter being on his left. He does still have blood around the meatus, but certainly no significant clots and not daina bleeding. The urine in the tubing is definitely hematuric, but without any clots and flowing nicely. ABDOMEN: His abdomen is soft, difficult to fully assess because he was straining or guarding due to his arm being manipulated for the blood. Certainly, there was no concern for a concerning abdomen. LABORATORY VALUES: Reveal an H and H of 9.1 and 27.7 yesterday afternoon and now 8.6 and 25.7 this morning, platelets still adequate and he does not have white count. PT WNL and PTT still 100. ASSESSMENT AND PLAN: We have a 73-year-old male with a very rare bleeding disorder, who presented with spontaneous right renal bleed, now status post cysto right stent, who also had a misplaced Castillo and has had to be scoped in twice. A second catheter was needed because after it was removed (a week after trauma), there was profuse bleeding that would not stop secondary to his bleeding disorder--which prompted this discovery and diagnosis. He now has a 24-Syriac three-way that has not required bladder irrigation, but the bleeding has not improved. His prognosis is quite poor and we have already discussed hospice with the social work case manager and his decisions are still pending. Job ID: [id number] [facility]
[2018-07-15] MEDS: Ascorbic Acid 500 mg Chewable Tablet PO SCH (09:47)
[2018-07-15] MEDS: Docusate 100 MG CAP PO SCH ×2 (09:47→20:17)
[2018-07-15] MEDS: Finasteride 5 MG TAB PO SCH (09:47)
[2018-07-15] MEDS: Tamsulosin HCl 0.4 MG CAP PO SCH (09:47)
[2018-07-15] MEDS: Thiamine 100 MG TAB PO SCH (09:47)
[2018-07-15] MEDS: Folic Acid 1 MG TAB PO SCH (09:47)
[2018-07-15] MEDS: Polyethylene Glycol 3350 17 GM Packet PO SCH (09:48)
[2018-07-15] MEDS: Milk Of Magnesia 30 ML UDCUP PO SCH ×2 (09:49→20:17)
[2018-07-15] MEDS: Cyanocobalamin 1000 MCG/ML VIAL IM SCH (14:00)
--- NOTE | 2018-07-15 17:00 | PDOC.PN ---
- Subjective Encounter Start Date: 07/15/18 (F/u dementia) Encounter Start Time: 16:59 Subjective: No changes overnight, pt continues to have hematuria, no clots -: noted by the RN. Is taking PO with assistance. - Objective Resuscitation Status - Order Detail: 07/05/18 14:33 Resuscitation Status Routine Resuscitation Status: DNAR: NO Resuscitation Discussed with: ANNA PEARCE-YARN WINDER FROM [facility] Vital Signs & Weight: Vital Signs (12 hours) Temp Pulse Resp BP Pulse Ox 07/15/18 15:12 99.8 F H 93 18 124/65 99 07/15/18 11:10 98.0 F 63 18 122/70 98 07/15/18 07:17 97.9 F 60 18 139/64 100 Weight Admit Weight 129 lb 14.24 oz Weight 129 lb 14.342 oz I&O: 07/14/18 07/15/18 07/16/18 06:59 06:59 06:59 Intake Total 3060 1940 1760 Output Total 5671 276 4488 Balance 1900 990 435 Result Diagrams: 07/15/18 07:35 07/14/18 10:58 Phys Exam - Physical Examination Constitutional: NAD Respiratory: no wheezing, no rales, no rhonchi Cardiovascular: RRR, no significant murmur Gastrointestinal: soft, non-tender, no distention, positive bowel sounds Musculoskeletal: no edema contracted upper and lower extremities Deviation from normal: non-verbal, does not make eye contact. Dx/Plan - Plan * Challenging situation with the patient and the underlying advanced chronic disease - dementia, parkinsons disease with contractures, blindness, dysphagia all complicated by the bleeding disorder manifesting at hematuria. * * appreciate multiple consultants - concern of presentation and recommendation for hospice care * * trend hemoglobin, no indication for transfusion at this time. * * Called and spoke with Anna today about the severity of the underlying disease and any intervention may temporize the situation but would not enhance or alter the current quality of life. She reports speaking with her relay shop supervisor and would like to set up a conference call with 2 supervisors and Hematology/ Dr. Torres on Wednesday. I offered to arrange a call sooner with the on-call Sew On Operator Dr. Franco - she reports the other 2 are not available. We discussed the decision about hospice is a decision on what someone will experience, and the focus is on quality of life. No change to the plan * * Reviewed orders and will d/c zosyn - has been on for 11 days and no signs of current active infection * d/c an old IVF order * * sacral ulcer - continue wound care. * * reconcilled meds and all home meds are ordered. * * dvt prophy - scd's as tolerated * gi prophy - not indicated * * pt remains at high risk of decompensation
[2018-07-16] MEDS: Sodium Chloride 0.9% 1,000 ML IV SCH (04:16)
[2018-07-16 06:01] LABS: #Basophils 0.1 thou/uL (0.0-0.2); #Eosinphils 0.3 thou/uL (0.0-0.7); #Lymphocytes 1.2 thou/uL (1.20-3.40); #Monocytes 0.8 thou/uL (0.11-0.59); #Neutrophils 6.4 thou/uL (1.40-6.50); %Basophils 0.9 % (0.0-1.0); %Eosinophils 3.1 % (0.0-10.0); %Lymphocytes 13.6 % (21.0-51.0); %Monocytes 8.7 % (0.0-10.0); %Neutrophils 73.6 % (42.0-75.0); Hemoglobin 7.7 g/dL (14.0-18.0); Mean Corpuscular HGB CONC 32.7 g/dL (32.0-36.0); Mean Corpuscular Hemoglobin 31.4 pg (27.0-31.0); Mean Platelet Volume 6.2 fL (7.4-10.4); Platelet Count 356 thou/uL (130-400); RBC Distribution Width 13.2 % (11.5-14.5); Red Blood Cell (RBC) Count 2.44 mill/uL (4.70-6.10); White Blood Cell (WBC) Count 8.7 thou/uL (4.8-10.8)
[2018-07-16 06:13] LABS: Anion Gap 10 mmol/L (10-20); BUN (Urea Nitrogen) 10 mg/dL (8.4-25.7); Calc. Creatinine Clearance 39 mL/min (70-130); Calcium 8.4 mg/dL (7.8-10.44); Carbon Dioxide 22 mmol/L (23-31); Chloride 113 mmol/L (98-107); Estimated GFR-MDRD 58; Glucose 83 mg/dL (83-110); Potassium 3.7 mmol/L (3.5-5.1); Sodium 141 mmol/L (136-145)
[2018-07-16] MEDS: Polyethylene Glycol 3350 17 GM Packet PO SCH (10:30)
[2018-07-16] MEDS: Milk Of Magnesia 30 ML UDCUP PO SCH ×2 (10:30→21:26)
[2018-07-16] MEDS: Folic Acid 1 MG TAB PO SCH (10:31)
[2018-07-16] MEDS: Thiamine 100 MG TAB PO SCH (10:31)
[2018-07-16] MEDS: Tamsulosin HCl 0.4 MG CAP PO SCH (10:31)
[2018-07-16] MEDS: Finasteride 5 MG TAB PO SCH (10:31)
[2018-07-16] MEDS: Docusate 100 MG CAP PO SCH ×2 (10:31→21:26)
[2018-07-16] MEDS: Ascorbic Acid 500 mg Chewable Tablet PO SCH (10:31)
[2018-07-16] MEDS ORDERED: Sodium Chloride 0.9% 1,000 ML IV SCH (11:24)
--- NOTE | 2018-07-16 11:25 | PDOC.PN ---
- Subjective Encounter Start Date: 07/16/18 (f/u hematuria) Encounter Start Time: 11:17 Subjective: No changes overnight, continues to have hematuria. No clots noted. - Objective Resuscitation Status - Order Detail: 07/05/18 14:33 Resuscitation Status Routine Resuscitation Status: DNAR: NO Resuscitation Discussed with: ANNA PEARCE-AFFILIATE MANAGER FROM [facility] Vital Signs & Weight: Vital Signs (12 hours) Temp Pulse Resp BP Pulse Ox 07/16/18 08:21 98.2 F 76 16 115/68 95 07/16/18 04:40 98 F 72 16 125/56 L 99 07/16/18 00:28 98.1 F 81 16 135/63 98 Weight Admit Weight 129 lb 14.24 oz Weight 129 lb 14.342 oz I&O: 07/15/18 07/16/18 07/17/18 06:59 06:59 06:59 Intake Total 1940 4500 Output Total 950 3475 Balance 990 1025 Result Diagrams: 07/16/18 05:31 07/16/18 05:31 Phys Exam - Physical Examination Constitutional: NAD Respiratory: no wheezing, no rales, no rhonchi Cardiovascular: RRR, no significant murmur Gastrointestinal: soft, positive bowel sounds contractures of both arms/legs/hands non-verbal, will open eyes briefly with light touch Skin: no rash Dx/Plan (1) Anemia Code(s): D64.9 - ANEMIA, UNSPECIFIED Status: Chronic (2) LISA (acute kidney injury) Code(s): N17.9 - ACUTE KIDNEY FAILURE, UNSPECIFIED Status: Acute (3) Arsalan hematuria Status: Acute (4) Dementia Code(s): F03.90 - UNSPECIFIED DEMENTIA WITHOUT BEHAVIORAL DISTURBANCE Status: Chronic Qualifiers: Dementia type: Parkinson's disease (5) Severe malnutrition Code(s): E43 - UNSPECIFIED SEVERE PROTEIN-CALORIE MALNUTRITION Status: Chronic (6) Dysphagia Code(s): R13.10 - DYSPHAGIA, UNSPECIFIED Status: Chronic (7) Parkinson disease Code(s): G20 - PARKINSON'S DISEASE Status: Chronic (8) Schizoaffective disorder Code(s): F25.9 - SCHIZOAFFECTIVE DISORDER, UNSPECIFIED Status: Chronic - Plan * worsening anemia secondary to ongoing hematuria - spoke with Anna/ [facility] and consent obtained to transfuse 1 unit prbc. * * This remains a challenging situation with the patient and the underlying advanced chronic disease - dementia, parkinsons disease with contractures, blindness, dysphagia all complicated by the bleeding disorder manifesting at hematuria. * * appreciate multiple consultants - concern of presentation and recommendation for hospice care \ * Plan from conversation yesterday with Anna - conference call with Dr. Torres on Wednesday with 3 reps from [employer]. * * sacral ulcer - continue wound care. * * continue vitamin b12 and folate supplements * lower IVF rate * * dvt prophy - scd's as tolerated * gi prophy - not indicated * * pt remains at high risk of decompensation
[2018-07-16] MEDS: Cyanocobalamin 1000 MCG/ML VIAL IM SCH (14:21)
[2018-07-17 05:52] LABS: #Basophils 0.1 thou/uL (0.0-0.2); #Eosinphils 0.3 thou/uL (0.0-0.7); #Lymphocytes 0.9 thou/uL (1.20-3.40); #Monocytes 0.8 thou/uL (0.11-0.59); #Neutrophils 6.4 thou/uL (1.40-6.50); %Basophils 0.8 % (0.0-1.0); %Lymphocytes 10.9 % (21.0-51.0); %Monocytes 9.6 % (0.0-10.0); %Neutrophils 75.8 % (42.0-75.0); Hemoglobin 7.9 g/dL (14.0-18.0); Mean Corpuscular HGB CONC 34.3 g/dL (32.0-36.0); Mean Corpuscular Hemoglobin 32.7 pg (27.0-31.0); Mean Corpuscular Volume 95.6 fL (78.0-98.0); Mean Platelet Volume 6.5 fL (7.4-10.4); Platelet Count 372 thou/uL (130-400); RBC Distribution Width 13.7 % (11.5-14.5); Red Blood Cell (RBC) Count 2.41 mill/uL (4.70-6.10); White Blood Cell (WBC) Count 8.5 thou/uL (4.8-10.8)
[2018-07-17 06:17] LABS: Anion Gap 13 mmol/L (10-20); BUN (Urea Nitrogen) 10 mg/dL (8.4-25.7); Calc. Creatinine Clearance 44 mL/min (70-130); Calcium 8.7 mg/dL (7.8-10.44); Carbon Dioxide 22 mmol/L (23-31); Chloride 115 mmol/L (98-107); Estimated GFR-MDRD 67; Glucose 96 mg/dL (83-110); Potassium 3.7 mmol/L (3.5-5.1); Sodium 146 mmol/L (136-145)
[2018-07-17] MEDS: Docusate 100 MG CAP PO SCH ×2 (08:35→20:37)
[2018-07-17] MEDS: Tamsulosin HCl 0.4 MG CAP PO SCH (08:35)
[2018-07-17] MEDS: Folic Acid 1 MG TAB PO SCH (08:36)
[2018-07-17] MEDS: Polyethylene Glycol 3350 17 GM Packet PO SCH (08:36)
[2018-07-17] MEDS: Finasteride 5 MG TAB PO SCH (08:36)
[2018-07-17] MEDS: Thiamine 100 MG TAB PO SCH (09:49)
[2018-07-17] MEDS ORDERED: Polyethylene Glycol 3350 17 GM Packet PO PRN (10:08)
[2018-07-17] MEDS ORDERED: Milk Of Magnesia 30 ML UDCUP PO PRN (10:08)
--- NOTE | 2018-07-17 10:10 | PDOC.PN ---
- Subjective Encounter Start Date: 07/17/18 (f/u hematuria) Encounter Start Time: 10:09 Subjective: No overnight events,continues to have hematuria. With assistance -: is able to take adequate fluids and solids. Some bleeding around the -: urethra this morning - resolved. Eye drainage today - Objective Resuscitation Status - Order Detail: 07/05/18 14:33 Resuscitation Status Routine Resuscitation Status: DNAR: NO Resuscitation Discussed with: ANNA PEARCE-AGENT PRODUCER FROM [facility] Vital Signs & Weight: Vital Signs (12 hours) Temp Pulse Resp BP Pulse Ox 07/17/18 07:22 98.3 F 81 16 133/64 100 07/17/18 04:00 98.2 F 69 20 127/69 99 07/17/18 00:00 98.9 F 89 19 133/69 97 Weight Admit Weight 129 lb 14.24 oz Weight 129 lb 14.342 oz I&O: 07/16/18 07/17/18 07/18/18 06:59 06:59 06:59 Intake Total 4500 1950 Output Total 3475 0 Balance 1025 -100 Result Diagrams: 07/17/18 04:50 07/17/18 04:50 Phys Exam - Physical Examination Constitutional: NAD drainage from eyes/matting of lashes - right > left Respiratory: no wheezing, no rales, no rhonchi, clear to auscultation bilateral Cardiovascular: RRR, no significant murmur Gastrointestinal: soft, non-tender, no distention, positive bowel sounds unchanged contractures Deviation from normal: unchanged - not responsive Dx/Plan (1) Anemia Code(s): D64.9 - ANEMIA, UNSPECIFIED Status: Chronic (2) LISA (acute kidney injury) Code(s): N17.9 - ACUTE KIDNEY FAILURE, UNSPECIFIED Status: Acute (3) Arsalan hematuria Status: Acute (4) Dementia Code(s): F03.90 - UNSPECIFIED DEMENTIA WITHOUT BEHAVIORAL DISTURBANCE Status: Chronic Qualifiers: Dementia type: Parkinson's disease (5) Severe malnutrition Code(s): E43 - UNSPECIFIED SEVERE PROTEIN-CALORIE MALNUTRITION Status: Chronic (6) Dysphagia Code(s): R13.10 - DYSPHAGIA, UNSPECIFIED Status: Chronic (7) Parkinson disease Code(s): G20 - PARKINSON'S DISEASE Status: Chronic (8) Schizoaffective disorder Code(s): F25.9 - SCHIZOAFFECTIVE DISORDER, UNSPECIFIED Status: Chronic (9) Conjunctivitis Code(s): H10.9 - UNSPECIFIED CONJUNCTIVITIS Status: Acute Qualifiers: Conjunctivitis type: other mucopurulent Laterality: bilateral Qualified Code(s): H10.023 - Other mucopurulent conjunctivitis, bilateral - Plan * * worsening anemia secondary to ongoing hematuria - s/p transfusion yesterday with slight elevation of blood count. * * This remains a challenging situation with the patient and the underlying advanced chronic disease - dementia, parkinsons disease with contractures, blindness, dysphagia all complicated by the bleeding disorder manifesting at hematuria. * * for eye changes - erythromycin ointment bid x 5 days * * appreciate multiple consultants - concern of presentation and recommendation for hospice care * Plan from conversation 2 days ago with Anna - conference call with Dr. Torres on Wednesday with 3 reps from [facility] [employer]. * * sacral ulcer - continue wound care. * * continue vitamin b12 and folate supplements * d/c IVF as with assistance able to take adequate PO, due to developing hypernatremia/hyperchloremia. * * hold on further transfusion - recheck this afternoon. If declining, plan to transfuse another unit rbc. Consent obtained yesterday from Anna/[facility] * * dvt prophy - scd's as tolerated * gi prophy - not indicated * * pt remains at high risk of decompensation and overall has a poor prognosis
[2018-07-17] MEDS: Milk Of Magnesia 30 ML UDCUP PO SCH (10:17)
[2018-07-17] MEDS: Erythromycin Base 0.5% Oint 1 GM TUBE EA EYE SCH ×2 (13:16→20:39)
[2018-07-17] MEDS: Ascorbic Acid 500 mg Chewable Tablet PO SCH (14:46)
[2018-07-17] MEDS: Cyanocobalamin 1000 MCG/ML VIAL IM SCH (14:47)
[2018-07-17 16:36] LABS: #Basophils 0.1 thou/uL (0.0-0.2); #Eosinphils 0.2 thou/uL (0.0-0.7); #Lymphocytes 1.1 thou/uL (1.20-3.40); #Monocytes 0.8 thou/uL (0.11-0.59); #Neutrophils 7.6 thou/uL (1.40-6.50); %Eosinophils 2.5 % (0.0-10.0); %Monocytes 8.2 % (0.0-10.0); %Neutrophils 77.3 % (42.0-75.0); Hemoglobin 9.6 g/dL (14.0-18.0); Mean Corpuscular Hemoglobin 31.1 pg (27.0-31.0); Mean Corpuscular Volume 97.1 fL (78.0-98.0); Mean Platelet Volume 6.3 fL (7.4-10.4); Platelet Count 456 thou/uL (130-400); RBC Distribution Width 13.9 % (11.5-14.5); Red Blood Cell (RBC) Count 3.09 mill/uL (4.70-6.10); White Blood Cell (WBC) Count 9.8 thou/uL (4.8-10.8)
[2018-07-18 05:57] LABS: #Eosinphils 0.3 thou/uL (0.0-0.7); #Lymphocytes 1.1 thou/uL (1.20-3.40); #Monocytes 0.9 thou/uL (0.11-0.59); #Neutrophils 8.2 thou/uL (1.40-6.50); %Basophils 0.4 % (0.0-1.0); %Eosinophils 2.5 % (0.0-10.0); %Lymphocytes 10.1 % (21.0-51.0); %Monocytes 8.7 % (0.0-10.0); %Neutrophils 78.3 % (42.0-75.0); Hemoglobin 7.8 g/dL (14.0-18.0); Mean Corpuscular HGB CONC 32.6 g/dL (32.0-36.0); Mean Corpuscular Hemoglobin 31.7 pg (27.0-31.0); Mean Corpuscular Volume 97.1 fL (78.0-98.0); Mean Platelet Volume 6.5 fL (7.4-10.4); Platelet Count 434 thou/uL (130-400); RBC Distribution Width 13.8 % (11.5-14.5); Red Blood Cell (RBC) Count 2.47 mill/uL (4.70-6.10); White Blood Cell (WBC) Count 10.5 thou/uL (4.8-10.8)
[2018-07-18 06:21] LABS: Anion Gap 13 mmol/L (10-20); BUN (Urea Nitrogen) 18 mg/dL (8.4-25.7); Calc. Creatinine Clearance 34 mL/min (70-130); Calcium 8.8 mg/dL (7.8-10.44); Carbon Dioxide 23 mmol/L (23-31); Chloride 115 mmol/L (98-107); Estimated GFR-MDRD 50; Glucose 105 mg/dL (83-110); Potassium 3.7 mmol/L (3.5-5.1); Sodium 147 mmol/L (136-145)
[2018-07-18] MEDS: Tamsulosin HCl 0.4 MG CAP PO SCH (09:15)
[2018-07-18] MEDS: Finasteride 5 MG TAB PO SCH (09:15)
[2018-07-18] MEDS: Docusate 100 MG CAP PO SCH ×2 (09:15→21:47)
[2018-07-18] MEDS: Erythromycin Base 0.5% Oint 1 GM TUBE EA EYE SCH ×2 (09:15→21:47)
[2018-07-18] MEDS: Folic Acid 1 MG TAB PO SCH (09:15)
[2018-07-18] MEDS: Thiamine 100 MG TAB PO SCH (09:15)
[2018-07-18] MEDS: Ascorbic Acid 500 mg Chewable Tablet PO SCH (09:16)
--- NOTE | 2018-07-18 13:17 | PRG ---
DATE OF SERVICE: 07/18/2018 SUBJECTIVE: Fortunately or unfortunately there have been no significant changes over the weekend other than he did have 1 unit of blood transfused and now appears to be hemodynamically stable with a stable H and H. However, the urine still significantly hematuric, although somewhat improved this morning, but he still has significant oozing with a small clot around the catheter as well. I spoke with Dr. Torres and it appears that the decision about hospice was not made at this time. Anna has to speak with multiple other people and they have multiple questions and thus not yet been able to make a decision regarding his status. OBJECTIVE: GENERAL: He is lying comfortably in the bed. VITAL SIGNS: He has been afebrile with vital signs stable. He has had approximately 2 L or more out from the catheter, which is hematuric, but electrical instrument repairer than Wednesday when I saw last, but there is still significant oozing requiring an ABD around the tip of the penis as there is a small amount of clot noted there. LABORATORY DATA: Laboratory values reveal an H and H 7.8 and 24.0. Creatinine actually went down to 1.29 yesterday, but back up to 1.66 today. ASSESSMENT AND PLAN: We have a 73-year-old gentleman admitted with a renal bleed and a misplaced catheter status post right ureteral stent, which did not improve his creatinine and inappropriately placed catheter. However, once that was removed , he bled profusely and it was noted he had a very rare bleeding disorder and now a large, 3-W catheter is in place--not requiring CBI. Certainly the hematuria is persisting and is unlikely something that would be tolerated in an outpatient setting. My other concern is when the catheter ultimately does need to be removed, is that is going to set off another cascade similar to what transpired previously?? For these reasons, I think it is best to commit the patient to hospice whether that be appropriate for inpatient or outpatient would depend on his bleeding status. Along with that, it needs to be decided whether to transfuse further as his H and H drop. This needs to be determined by his nurse care manager, Anna. Job ID: [id number] MTDD
[2018-07-18] MEDS: Cyanocobalamin 1000 MCG/ML VIAL IM SCH (14:19)
--- NOTE | 2018-07-19 01:39 | HP ---
Event note. I had a conversation on the phone with [facility] regarding Philip Locke' care and recommendations for treatment. I discussed with them his current disease status including his factor 8 inhibitor, ongoing bleeding, and requirement of ongoing blood transfusions. I explained the treatment of factor 8 inhibitor can range from plasma exchange to NovoSeven as well as potential cytotoxic chemotherapy in order to decrease inhibitor levels. The patient is not a candidate for plasma exchange or these other treatments due to his extremely frail status and ECOG performance score of 4. He has severe dementia, is bed-bound, contracted, and requires 24/7 care and others to feed him. This has been evaluated by myself, Dr. Torres along with Dr. Wren and have all recommended hospice. I discussed all this with [facility] and after discussion, I have agreed on hospice care for this patient. Palliative Care has been following with and will initiate the hospice planning tomorrow. Job ID: [id number]
[2018-07-19] MEDS: Ascorbic Acid 500 mg Chewable Tablet PO SCH (08:28)
[2018-07-19] MEDS: Docusate 100 MG CAP PO SCH (08:28)
[2018-07-19] MEDS: Erythromycin Base 0.5% Oint 1 GM TUBE EA EYE SCH (08:28)
[2018-07-19] MEDS: Folic Acid 1 MG TAB PO SCH (08:28)
[2018-07-19] MEDS: Tamsulosin HCl 0.4 MG CAP PO SCH (08:28)
[2018-07-19] MEDS: Thiamine 100 MG TAB PO SCH (08:28)
[2018-07-19] MEDS: Finasteride 5 MG TAB PO SCH (08:29)
[2018-07-19] MEDS: Cyanocobalamin 1000 MCG/ML VIAL IM SCH (14:25)
[2018-07-19 15:50] VITALS: BP 116/67; TEMP 98.3
--- NOTE | 2018-07-20 11:57 | DIS ---
DATE OF ADMISSION: 07/06/2018 DATE OF DISCHARGE: 07/19/2018 ADMITTING DIAGNOSES: 1. Severe hematuria. 2. Possible aspiration pneumonia, left base. 3. Severe constipation. 4. Severe dementia . patient is nonambulatory and bedridden 5. chronic anemia. FINAL DIAGNOSES: 1. Factor VIII inhibitor with severe hematuria, continuous. 2. Severe anemia, status post transfusion. 3. Status post cystoscopy and stent placement. 4. Severe constipation, resolved. 5. Severe dementia. 6. Severe Parkinson disease. 7. The patient is bedridden, nonambulatory, and nonverbal. 8. Renal parenchymal hemorrhage. BRIEF SUMMARY OF HOSPITAL COURSE: Mr. Locke is 73-year-old male who was admitted because of hematuria. The patient had catheter removed and placed because of more bleeding. The patient has seen a urologist, Dr. Wren, he has yesterday had initial evaluation for hematuria by cystoscopy, but initially he wanted to leave the catheter for a few days until the urethral trauma was able to be heal. He was continued with antibiotics. Also started on Flomax for BPH. The patient was monitored in the next few days, and he underwent cystoscopy because of right hydronephrosis and hematuria. The patient had a stent placement in right uereter and had retrograde pyelogram. The patient continued to have hematuria, so hematology consult was done. The patient was seen by Dr. 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 With other medical problems , the patient is not a candidate for plasmaperesis He was transfused and given fresh frozen plasma . His condition was discussed with his power of contracts attorney, they agreed the patient to be placed on hospice so [facility]. At the time of discharge, he is stable, vital signs are stable. there are no discharge medicines. He will be managed by [facility]. Job ID: [id number] [facility]
== END 2018-07-19 17:35 | disposition hospice, inpatient (51) | DRG 659 ==
LOC: ERS 18:59 → SURG A 07-05 01:56 → OBSVTOIN 07-06 08:49
PROVIDERS: ADMIT Internal Medicine; ATTEND Internal Medicine
PROC: 0T9B80Z Drainage of Bladder with Drainage Device, Via Natural or Artificial Opening Endoscopic (ICD-10-PCS; principal; 2018-07-05)
PROC: 0T768DZ Dilation of Right Ureter with Intraluminal Device, Via Natural or Artificial Opening Endoscopic (ICD-10-PCS; 2018-07-06)
PROC: 30233N1 Transfusion of Nonautologous Red Blood Cells into Peripheral Vein, Percutaneous Approach (ICD-10-PCS; 2018-07-08)
PROC: 0T9B70Z Drainage of Bladder with Drainage Device, Via Natural or Artificial Opening (ICD-10-PCS; 2018-07-12)
PROC: 0T9B80Z Drainage of Bladder with Drainage Device, Via Natural or Artificial Opening Endoscopic (ICD-10-PCS; 2018-07-13)
PROC: 30233L1 Transfusion of Nonautologous Fresh Plasma into Peripheral Vein, Percutaneous Approach (ICD-10-PCS; 2018-07-13)
DX: T83.83XA Hemorrhage due to genitourinary prosthetic devices, implants and grafts, initial encounter (principal); J69.0 Pneumonitis due to inhalation of food and vomit; E43 Unspecified severe protein-calorie malnutrition; N13.1 Hydronephrosis with ureteral stricture, not elsewhere classified; D68.4 Acquired coagulation factor deficiency; N17.9 Acute kidney failure, unspecified; Z68.1 Body mass index [BMI] 19.9 or less, adult; Z51.5 Encounter for palliative care; R31.0 Gross hematuria; G20 Parkinson's disease; F02.80 Dementia in other diseases classified elsewhere, unspecified severity, without behavioral disturbance, psychotic disturbance, mood disturbance, and anxiety; N32.89 Other specified disorders of bladder; L89.159 Pressure ulcer of sacral region, unspecified stage; N40.0 Benign prostatic hyperplasia without lower urinary tract symptoms; R13.10 Dysphagia, unspecified; E53.8 Deficiency of other specified B group vitamins; K59.00 Constipation, unspecified; D64.9 Anemia, unspecified; H54.8 Legal blindness, as defined in USA; H10.023 Other mucopurulent conjunctivitis, bilateral; F25.9 Schizoaffective disorder, unspecified; Z66 Do not resuscitate; Y84.6 Urinary catheterization as the cause of abnormal reaction of the patient, or of later complication, without mention of misadventure at the time of the procedure; Y92.129 Unspecified place in nursing home as the place of occurrence of the external cause
CPT/HCPCS: 36415; 36416; 36430; 51701; 71045; 74018; 74176; 74177; 74420; 80048; 80053; 80500; 81001; 81003; 81015; 82274; 82728; 83540; 83550; 83605; 85014; 85018; 85025; 85027; 85049; 85240; 85250; 85300; 85362; 85379; 85384; 85610; 85611; 85670; 85730; 85732; 86850; 86900; 86901; 87040; 87086; 88112; 90471; 90670; 93005; 94760; 96360; 96365; 96367; 96368; 96375; C1758; G0009; G0103; J0696; J2001; J2370; J2405; J2543; J2704; J3010; J3370; J3420; J3430; J3475; J3490; J7050; P9016; P9059; Q9961; Q9966